=== PATIENT | female | born 1950 | race Caucasian/White ===

== ENCOUNTER 2017-03-10 17:35 | Inpatient (IN) ==
[2017-03-10] MEDS ORDERED: Nitroglycerin 0.4 MG TAB.SUBL SL ONE (18:51)
--- NOTE | 2017-03-10 18:53 | Emergency Department Note ---
Disposition Clinical Impression: Bilateral lower extremity edema, Acute CHF, UTI (urinary tract infection) Chest pain Qualifiers: Chest pain type: other chest pain Qualified Code(s): R07.89 - Other chest pain Disposition: Admitted As Inpatient Condition: Good General Adult HPI - General Chief complaint: ED Chest Pain Stated complaint: Bilateral leg swelling,left arm numbness Time Seen by Provider: 03/10/17 17:43 Source: family Mode of arrival: ambulatory Limitations: no limitations, physical limitation Nursing Notes Reviewed: Yes Vital Signs Reviewed: Yes - History of Present Illness HPI Narrative: [age]-year-old female presents emergency Department with bilateral lower extremity swelling and increasing shortness of breath. Patient states her legs have been increasingly swollen over the past month. She called her PCP for advice who recommended she be evaluated in emergency department. Patient blood pressures generally 1:30 systolic however in the emergency department is greater than 200. Patient also noted chest pain which started today, pressure in the center of her chest that radiated to the left arm. Pain Scale: 9 - Related Data Home Medications Medication Instructions Recorded Confirmed Amitriptyline [Elavil] 50 mg PO HS 02/05/16 03/10/17 Atorvastatin [Lipitor] 40 mg PO HS 02/05/16 03/10/17 Bupropion HCl [Wellbutrin Xl] 300 mg PO QAM 02/05/16 03/10/17 Ergocalciferol (VITAMIN D2) 50,000 unit PO Q2W 02/05/16 03/10/17 [Vitamin D2] Hydroxychloroquine [Plaquenuil] 200 mg PO DAILY 02/05/16 03/10/17 Lisinopril [Zestril] 20 mg PO DAILY 02/05/16 03/10/17 Meclizine HCl [Verticalm] 25 mg PO TID PRN 02/05/16 03/10/17 Rivaroxaban [Xarelto] 20 mg PO DAILY 02/05/16 03/10/17 Sertraline [Zoloft] 200 mg PO DAILY 02/05/16 03/10/17 Tiotropium [Spiriva] 1 spray IH DAILY 02/05/16 03/10/17 Tizanidine HCl 2 mg PO BID PRN 02/05/16 03/10/17 Topiramate [Topamax] 100 mg PO HS 02/05/16 03/10/17 Triamcinolone Acet 0.1% CRM 1 appl TP TID PRN 02/05/16 03/10/17 [Kenalog] Diclofenac Sodium [Voltaren] 1 appl TP QID 03/10/17 03/10/17 Gabapentin [Neurontin] 1,200 mg PO HS 03/10/17 03/10/17 Gabapentin [Neurontin] 600 mg PO BID 03/10/17 03/10/17 Ipratropium/Albuterol Neb [Duoneb] 3 ml IH Q4-6H 03/10/17 03/10/17 Mometasone Furoate [Asmanex] 220 mcg IH QPM 03/10/17 03/10/17 Oxybutynin Chloride [Ditropan Xl] 5 mg PO DAILY 03/10/17 03/10/17 SUMAtriptan succinate [Imitrex] 100 mg PO NOW PRN 03/10/17 03/10/17 Torsemide [Demadex] 20 - 40 mg PO DAILY 03/10/17 03/10/17 Triamterene/HCTZ 37.5/25mg 1 each PO DAILY 03/10/17 03/10/17 [Dyazide] hydrOXYzine HCl [Hydroxyzine HCl] 12.5 - 25 mg PO Q8H 03/10/17 03/10/17 Previous Rx's Medication Instructions Recorded Aspirin 81 mg PO DAILY tab.chew 02/07/16 Allergies Allergy/AdvReac Type Severity Reaction Status Date / Time [place] Allergy Hives Verified 03/10/17 20:42 naproxen AdvReac See Verified 03/10/17 20:42 Comments pregabalin [From Lyrica] AdvReac Vomiting Verified 03/10/17 20:42 All systems ED: reviewed and negative except as stated. Review of Systems: As Per HPI Constitutional: Reports: weakness. Denies: fever, chills Cardiovascular: Reports: chest pain Respiratory: Reports: dyspnea, wheezes. Denies: cough, hemoptysis, stridor Gastrointestinal: Denies: abdominal pain, nausea, vomiting Past Medical History - Past Medical History Attestation: Yes The following information was validated with the patient. Source: patient Medical history: Reports: arthritis, asthma, COPD, hyperlipidemia, hypertension , thyroid disease, other Surgical history: Reports: appendectomy, cholecystectomy, hysterectomy, other ( eye surgery) Psychiatric history: Reports: anxiety, depression - Social History Smoking Status: Current every day smoker Smokeless Tobacco Status: No Alcohol use: Reports: unknown Drug use: Reports: none Physical Exam General: Alert and in no acute distress. Morbidly obese Skin: Warm, dry, intact Head: Normocephalic and atraumatic Neck: Supple, trachea midline and no tenderness Cardiovascular: RRR, no murmur, normal perfusion Respiratory: CTAB, no wheezing, cough, or respiratory distress Musculoskeletal: Normal strength. Bilateral lower extremity edema. Extremities are warm to the touch with good cap refill. GI: Soft, nontender, nondistended. Bowel sounds present Neuro: A&O to person, place, time and situation. No focal deficits noted on exam Psychiatric: cooperative and appropriate mood and affect. - General Limitations: physical limitation General appearance: alert, in no apparent distress Course Vital Signs Temperature 98.4 F 03/10/17 18:25 Pulse Rate 87 03/10/17 18:25 Respiratory Rate 20 03/10/17 18:25 Blood Pressure 215/95 03/10/17 18:25 O2 Sat by Pulse Oximetry 96 03/10/17 18:25 Temperature 97.8 F 03/11/17 01:00 Pulse Rate 91 03/11/17 01:00 Respiratory Rate 18 03/11/17 01:05 Blood Pressure 144/67 03/11/17 01:00 O2 Sat by Pulse Oximetry 95 03/11/17 01:05 Oxygen Delivery Oxygen Delivery Room Air Medical Decision Making - MDM Narrative Medical decision making narrative: BiPAP ordered after initial evaluation for mild respiratory distress. Patient labs and imaging pending at the end of my shift. Patient will be transferred to Dr. Milan pending further evaluation and disposition. - Medical Records Medical records reviewed: Yes I reviewed the patient's medical records. - Lab Data Result diagrams: 03/11/17 00:49 03/11/17 00:49 Lab Results 03/10/17 03/10/17 03/10/17 Range/Units 18:55 18:55 18:55 WBC (4.3-11.1) K/mcL RBC (3.82-4.97) M/mcL Hgb (11.5-15.4) g/dL Hct (35.3-44.9) % MCV (83.0-100.0) fL MCH (28.0-33.3) pg MCHC (31.6-35.5) g/dL RDW (11.5-14.5) % Plt Count (140-400) K/mcL MPV (9.4-12.4) fL Immature Gran % (0-4) % Seg Neutrophils % % Lymphocytes % % Monocytes % % Eosinophils % % Basophils % % Neutrophils # (1.6-8.9) K/mcL Lymphocytes # (0.6-4.6) K/mcL Monocytes # (0.0-1.3) K/mcL Eosinophils # (0.0-0.6) K/mcL Basophils # (0.0-0.2) K/mcL PT 16.8 H (9.4-12.1) Seconds INR 1.5 APTT 34.3 (26.0-36.0) Seconds ABG pH (7.32-7.45) pH Units ABG pCO2 (35-45) mmHg ABG pO2 (85-104) mmHg ABG HCO3 (21-27) mEq/L ABG Total CO2 (20-26) mEq/L ABG O2 Saturation (95-98) % ABG Base Excess (-2 to 3) mEq/L Sodium 139 (136-145) mEq/L Potassium 4.0 (3.5-4.5) mEq/L Chloride 105 (98-109) mEq/L Carbon Dioxide 26 (19-29) mEq/L BUN 14 (7-20) mg/dL Creatinine 0.79 (0.57-1.11) mg/dL Est GFR ( Amer) > 60 (> 60) Est GFR (Non-Af Amer) > 60 (> 60) BUN/Creatinine Ratio 18 (6-26) Glucose 107 H (70-99) mg/dL Calculated Osmolality 289 (280-300) Calcium 8.9 (8.6-10.8) mg/dL Total Bilirubin 0.2 (0.2-1.2) mg/dL Direct Bilirubin 0.1 (0.0-0.5) mg/dL Indirect Bilirubin 0.1 (0.0-1.2) mg/dL AST 16 (5-34) Units/L ALT 14 (0-55) Units/L Alkaline Phosphatase 71 (38-126) Units/L Troponin I (0-0.03) ng/mL B-Natriuretic Peptide 38 (0-100) pg/mL Serum Total Protein 6.8 (6.0-8.3) g/dL Albumin 2.9 L (3.5-5.0) g/dL Globulin 3.9 H (2.4-3.5) g/dL Albumin/Globulin Ratio 0.7 L (1.1-2.2) Lipase 17 (8-78) Units/L Urine Color (Yellow) Urine Clarity (Clear) Urine pH (5.0-8.0) pH Units Ur Specific [place] (1.010-1.025) Urine Protein (Neg-Trace) mg/dL Urine Glucose (UA) (Normal) mg/dL Urine Ketones (Negative) mg/dL Urine Blood (Negative) Urine Nitrite (Negative) Urine Bilirubin (Negative) Urine Urobilinogen (Normal) mg/dL Ur Leukocyte Esterase (Negative) Urine Microscopic RBC (0-3) per hpf Urine Microscopic WBC (0-3) per hpf Ur Squamous Epith Cells (None-Few) per lpf Urine Bacteria (None-Few) per hpf Hyaline Casts (None-Few) per lpf Ur Culture Indicated? (NO) 03/10/17 03/10/17 03/10/17 Range/Units 18:55 18:55 19:20 WBC 10.3 (4.3-11.1) K/mcL RBC 4.83 (3.82-4.97) M/mcL Hgb 12.8 (11.5-15.4) g/dL Hct 41.7 (35.3-44.9) % MCV 86.3 (83.0-100.0) fL MCH 26.5 L (28.0-33.3) pg MCHC 30.7 L (31.6-35.5) g/dL RDW 14.4 (11.5-14.5) % Plt Count 230 (140-400) K/mcL MPV 10.0 (9.4-12.4) fL Immature Gran % 0.4 (0-4) % Seg Neutrophils % 65.1 % Lymphocytes % 25.4 % Monocytes % 7.2 % Eosinophils % 1.4 % Basophils % 0.5 % Neutrophils # 6.7 (1.6-8.9) K/mcL Lymphocytes # 2.6 (0.6-4.6) K/mcL Monocytes # 0.7 (0.0-1.3) K/mcL Eosinophils # 0.1 (0.0-0.6) K/mcL Basophils # 0.1 (0.0-0.2) K/mcL PT (9.4-12.1) Seconds INR APTT (26.0-36.0) Seconds ABG pH 7.34 (7.32-7.45) pH Units ABG pCO2 49 H (35-45) mmHg ABG pO2 68 L (85-104) mmHg ABG HCO3 27 (21-27) mEq/L ABG Total CO2 28 H (20-26) mEq/L ABG O2 Saturation 92 L (95-98) % ABG Base Excess 0 (-2 to 3) mEq/L Sodium (136-145) mEq/L Potassium (3.5-4.5) mEq/L Chloride (98-109) mEq/L Carbon Dioxide (19-29) mEq/L BUN (7-20) mg/dL Creatinine (0.57-1.11) mg/dL Est GFR ( Amer) (> 60) Est GFR (Non-Af Amer) (> 60) BUN/Creatinine Ratio (6-26) Glucose (70-99) mg/dL Calculated Osmolality (280-300) Calcium (8.6-10.8) mg/dL Total Bilirubin (0.2-1.2) mg/dL Direct Bilirubin (0.0-0.5) mg/dL Indirect Bilirubin (0.0-1.2) mg/dL AST (5-34) Units/L ALT (0-55) Units/L Alkaline Phosphatase (38-126) Units/L Troponin I 0.01 (0-0.03) ng/mL B-Natriuretic Peptide (0-100) pg/mL Serum Total Protein (6.0-8.3) g/dL Albumin (3.5-5.0) g/dL Globulin (2.4-3.5) g/dL Albumin/Globulin Ratio (1.1-2.2) Lipase (8-78) Units/L Urine Color (Yellow) Urine Clarity (Clear) Urine pH (5.0-8.0) pH Units Ur Specific [place] (1.010-1.025) Urine Protein (Neg-Trace) mg/dL Urine Glucose (UA) (Normal) mg/dL Urine Ketones (Negative) mg/dL Urine Blood (Negative) Urine Nitrite (Negative) Urine Bilirubin (Negative) Urine Urobilinogen (Normal) mg/dL Ur Leukocyte Esterase (Negative) Urine Microscopic RBC (0-3) per hpf Urine Microscopic WBC (0-3) per hpf Ur Squamous Epith Cells (None-Few) per lpf Urine Bacteria (None-Few) per hpf Hyaline Casts (None-Few) per lpf Ur Culture Indicated? (NO) 03/10/17 Range/Units 19:20 WBC (4.3-11.1) K/mcL RBC (3.82-4.97) M/mcL Hgb (11.5-15.4) g/dL Hct (35.3-44.9) % MCV (83.0-100.0) fL MCH (28.0-33.3) pg MCHC (31.6-35.5) g/dL RDW (11.5-14.5) % Plt Count (140-400) K/mcL MPV (9.4-12.4) fL Immature Gran % (0-4) % Seg Neutrophils % % Lymphocytes % % Monocytes % % Eosinophils % % Basophils % % Neutrophils # (1.6-8.9) K/mcL Lymphocytes # (0.6-4.6) K/mcL Monocytes # (0.0-1.3) K/mcL Eosinophils # (0.0-0.6) K/mcL Basophils # (0.0-0.2) K/mcL PT (9.4-12.1) Seconds INR APTT (26.0-36.0) Seconds ABG pH (7.32-7.45) pH Units ABG pCO2 (35-45) mmHg ABG pO2 (85-104) mmHg ABG HCO3 (21-27) mEq/L ABG Total CO2 (20-26) mEq/L ABG O2 Saturation (95-98) % ABG Base Excess (-2 to 3) mEq/L Sodium (136-145) mEq/L Potassium (3.5-4.5) mEq/L Chloride (98-109) mEq/L Carbon Dioxide (19-29) mEq/L BUN (7-20) mg/dL Creatinine (0.57-1.11) mg/dL Est GFR ( Amer) (> 60) Est GFR (Non-Af Amer) (> 60) BUN/Creatinine Ratio (6-26) Glucose (70-99) mg/dL Calculated Osmolality (280-300) Calcium (8.6-10.8) mg/dL Total Bilirubin (0.2-1.2) mg/dL Direct Bilirubin (0.0-0.5) mg/dL Indirect Bilirubin (0.0-1.2) mg/dL AST (5-34) Units/L ALT (0-55) Units/L Alkaline Phosphatase (38-126) Units/L Troponin I (0-0.03) ng/mL B-Natriuretic Peptide (0-100) pg/mL Serum Total Protein (6.0-8.3) g/dL Albumin (3.5-5.0) g/dL Globulin (2.4-3.5) g/dL Albumin/Globulin Ratio (1.1-2.2) Lipase (8-78) Units/L Urine Color Yellow (Yellow) Urine Clarity Cloudy A (Clear) Urine pH 6.0 (5.0-8.0) pH Units Ur Specific [place] 1.017 (1.010-1.025) Urine Protein >=300 H (Neg-Trace) mg/dL Urine Glucose (UA) Normal (Normal) mg/dL Urine Ketones Negative (Negative) mg/dL Urine Blood Large H (Negative) Urine Nitrite Positive A (Negative) Urine Bilirubin Negative (Negative) Urine Urobilinogen Normal (Normal) mg/dL Ur Leukocyte Esterase Small H (Negative) Urine Microscopic RBC 30-50 H (0-3) per hpf Urine Microscopic WBC 30-50 H (0-3) per hpf Ur Squamous Epith Cells Many H (None-Few) per lpf Urine Bacteria Many H (None-Few) per hpf Hyaline Casts None Seen (None-Few) per lpf Ur Culture Indicated? YES A (NO) - EKG Data EKG #1 EKG attestation: Yes I reviewed and interpreted this EKG. EKG results narrative: Normal sinus rhythm with a rate of 87 with diffusely flattened and inverted T waves Which are unchanged from previous. Attestation Statement - Attestation Attestation: I examined this patient and my medical decision-making was reviewed with the Resident Physician. I agree with the documented findings, disposition and treatment plan as described except to the extent set forth below. Findings consistent with leg swelling and dyspnea. Patient was placed on BiPAP. Patient will be admitted for evaluation of dyspnea and hypoxia. Stable at time of admission after initiation of BiPAP. I spent greater than 35 minutes of critical care time resuscitating this acutely ill patient suffering from hypoxia. This is excluding billable procedures.
[2017-03-10] MEDS ORDERED: Ipratropium/Albuterol Neb 3 ML IH ONE (19:12)
[2017-03-10 19:23] LABS: ABG Base Excess 0 mEq/L (-2 to 3); ABG HCO3 27 mEq/L (21-27); ABG Oxygen Saturation 92 % (95-98); ABG PCO2 49 mmHg (35-45); ABG PH 7.34 pH Units (7.32-7.45); ABG PO2 68 mmHg (85-104); ABG TCO2 28 mEq/L (20-26)
[2017-03-10] MEDS ORDERED: Furosemide 40 MG/4 ML VIAL IVP ONE (19:27)
[2017-03-10 19:29] LABS: Basophils # 0.1 K/mcL (0.0-0.2); Basophils % 0.5 %; Eosinophils # 0.1 K/mcL (0.0-0.6); Eosinophils % 1.4 %; Hematocrit 41.7 % (35.3-44.9); Hemoglobin 12.8 g/dL (11.5-15.4); Immature Granulocytes % 0.4 % (0-4); Lymphocytes # 2.6 K/mcL (0.6-4.6); Lymphocytes % 25.4 %; Mean Corpuscular HGB Conc 30.7 g/dL (31.6-35.5); Mean Corpuscular Hemoglobin 26.5 pg (28.0-33.3); Mean Corpuscular Volume 86.3 fL (83.0-100.0); Monocytes # 0.7 K/mcL (0.0-1.3); Monocytes % 7.2 %; Neutrophils # 6.7 K/mcL (1.6-8.9); Platelet Count 230 K/mcL (140-400); Red Blood Count 4.83 M/mcL (3.82-4.97); Red Cell Distribution Width 14.4 % (11.5-14.5); Segmented Neutrophils % 65.1 %
[2017-03-10] MEDS ORDERED: Nitroglycerin 25 MG/250 ML INFUS..BTL IVC SCH (19:30)
[2017-03-10 19:38] LABS: INR 1.5; Prothrombin Time 16.8 Seconds (9.4-12.1)
[2017-03-10 19:41] LABS: Activated Partial Thrombo Time 34.3 Seconds (26.0-36.0)
[2017-03-10 19:43] LABS: Alanine Aminotransferase 14 Units/L (0-55); Albumin 2.9 g/dL (3.5-5.0); Albumin/Globulin Ratio 0.7 (1.1-2.2); Alkaline Phosphatase 71 Units/L (38-126); Aspartate Amino Transferase 16 Units/L (5-34); BUN/Creatinine Ratio 18 (6-26); Bilirubin,Direct 0.1 mg/dL (0.0-0.5); Bilirubin,Indirect 0.1 mg/dL (0.0-1.2); Bilirubin,Total 0.2 mg/dL (0.2-1.2); Blood Urea Nitrogen 14 mg/dL (7-20); Calcium 8.9 mg/dL (8.6-10.8); Carbon Dioxide 26 mEq/L (19-29); Chloride 105 mEq/L (98-109); Globulin 3.9 g/dL (2.4-3.5); Glucose 107 mg/dL (70-99); Lipase 17 Units/L (8-78); Osmolality,Calculated 289 (280-300); Sodium 139 mEq/L (136-145); Total Protein 6.8 g/dL (6.0-8.3); eGFR For African Americans > 60 (> 60); eGFR For Non-African Americans > 60 (> 60)
[2017-03-10 20:11] LABS: Bilirubin,Urine Negative (Negative); Blood,Urine Large (Negative); Clarity,Urine Cloudy (Clear); Color,Urine Yellow (Yellow); Glucose,Urine (UA) Normal (Normal); Ketones,Urine Negative (Negative); Leukocyte Esterase,Urine Small (Negative); Nitrite,Urine Positive (Negative); Protein,Urine >=300 mg/dL (Neg-Trace); Specific Gravity,Urine 1.017 (1.010-1.025); Urobilinogen,Urine Normal (Normal)
[2017-03-10 20:13] LABS: Bacteria,Urine Many per hpf (None-Few); Hyaline Casts,Urine None Seen per lpf (None-Few); RBC,Urine 30-50 per hpf (0-3); Squamous Epithelial Cell,Urine Many per lpf (None-Few); WBC,Urine 30-50 per hpf (0-3)
--- NOTE | 2017-03-10 20:31 | Emergency Department Note ---
Disposition Clinical Impression: Bilateral lower extremity edema Chest pain Qualifiers: Chest pain type: other chest pain Qualified Code(s): R07.89 - Other chest pain Acute CHF Qualifiers: Congestive heart failure type: unspecified congestive heart failure type Qualified Code(s): I50.9 - Heart failure, unspecified UTI (urinary tract infection) Qualifiers: Urinary tract infection type: site unspecified Hematuria presence: with hematuria Qualified Code(s): N39.0 - Urinary tract infection, site not specified Disposition: Admitted As Inpatient Condition: Good Time of Disposition: 20:47 General Adult HPI - General Chief complaint: ED Chest Pain Stated complaint: Bilateral leg swelling,left arm numbness Time Seen by Provider: 03/10/17 17:43 Source: family Mode of arrival: ambulatory Limitations: physical limitation Nursing Notes Reviewed: Yes Vital Signs Reviewed: Yes - History of Present Illness HPI Narrative: Mrs. Hwang, 66-year-old female, istory of 3 weeks of progressively worsening dyspnea as well as weight gain. Patient has not weighed herself but notes her socks are tight on her feet and she is unable to wear her shoes as her feet are too large. She also notes chest pain which is difficult for her to describe, located substernal, non-radiating, with left arm numbness. Patient called her PCP for advice who recommended she present to the ER for evaluation. PMH: Hypertension, hyperlipide, morbid obesity, hypothyroidism, COPD-oxygen dependent 2 L at night and with activity, history DVT on [place] and with Amanda filter in place, history TIA ( January 2016), history CAD with ACS- no stents. ROS: Positive: as above, chills Neg: cough, fever, unusual back pain, abdominal pain, dysuria, constipation, diarrhea, vertigo, falls, confusion Pain Scale: 9 - Related Data Home Medications Medication Instructions Recorded Confirmed Amitriptyline [Elavil] 50 mg PO HS 02/05/16 03/10/17 Atorvastatin [Lipitor] 40 mg PO HS 02/05/16 03/10/17 Bupropion HCl [Wellbutrin Xl] 300 mg PO QAM 02/05/16 03/10/17 Ergocalciferol (VITAMIN D2) 50,000 unit PO Q2W 02/05/16 03/10/17 [Vitamin D2] Hydroxychloroquine [Plaquenuil] 200 mg PO DAILY 02/05/16 03/10/17 Lisinopril [Zestril] 20 mg PO DAILY 02/05/16 03/10/17 Meclizine HCl [Verticalm] 25 mg PO TID PRN 02/05/16 03/10/17 Rivaroxaban [Xarelto] 20 mg PO DAILY 02/05/16 03/10/17 Sertraline [Zoloft] 200 mg PO DAILY 02/05/16 03/10/17 Tiotropium [Spiriva] 1 spray IH DAILY 02/05/16 03/10/17 Tizanidine HCl 2 mg PO BID PRN 02/05/16 03/10/17 Topiramate [Topamax] 100 mg PO HS 02/05/16 03/10/17 Triamcinolone Acet 0.1% CRM 1 appl TP TID PRN 02/05/16 03/10/17 [Kenalog] Diclofenac Sodium [Voltaren] 1 appl TP QID 03/10/17 03/10/17 Gabapentin [Neurontin] 1,200 mg PO HS 03/10/17 03/10/17 Gabapentin [Neurontin] 600 mg PO BID 03/10/17 03/10/17 Ipratropium/Albuterol Neb [Duoneb] 3 ml IH Q4-6H 03/10/17 03/10/17 Mometasone Furoate [Asmanex] 220 mcg IH QPM 03/10/17 03/10/17 Oxybutynin Chloride [Ditropan Xl] 5 mg PO DAILY 03/10/17 03/10/17 SUMAtriptan succinate [Imitrex] 100 mg PO NOW PRN 03/10/17 03/10/17 Torsemide [Demadex] 20 - 40 mg PO DAILY 03/10/17 03/10/17 Triamterene/HCTZ 37.5/25mg 1 each PO DAILY 03/10/17 03/10/17 [Dyazide] hydrOXYzine HCl [Hydroxyzine HCl] 12.5 - 25 mg PO Q8H 03/10/17 03/10/17 Previous Rx's Medication Instructions Recorded Aspirin 81 mg PO DAILY tab.chew 02/07/16 Allergies Allergy/AdvReac Type Severity Reaction Status Date / Time Wells Allergy Hives Verified 03/10/17 20:42 naproxen AdvReac See Verified 03/10/17 20:42 Comments pregabalin [From Lyrica] AdvReac Vomiting Verified 03/10/17 20:42 All systems ED: reviewed and negative except as stated. Review of Systems: As Per HPI Constitutional: Reports: weakness. Denies: fever, chills Cardiovascular: Reports: chest pain Respiratory: Reports: dyspnea, wheezes. Denies: cough, hemoptysis, stridor Gastrointestinal: Denies: abdominal pain, nausea, vomiting Past Medical History - Past Medical History Medical history: Reports: arthritis, asthma, COPD, hyperlipidemia, hypertension , thyroid disease, other Surgical history: Reports: appendectomy, cholecystectomy, hysterectomy, other ( eye surgery) Psychiatric history: Reports: anxiety, depression - Social History Smoking Status: Current every day smoker Smokeless Tobacco Status: No Alcohol use: Reports: unknown Drug use: Reports: none Physical Exam Vital Signs Reviewed General: Patient is alert, oriented, and in no acute distress. HEENT: No facial asymmetry. Head is normocephalic and atraumatic. PERRLA, EOMI. Oral mucosa moist. Trachea midline. Cardiovascular: Heart regular rate and rhythm without clicks, rubs, gallops, or murmurs. No JVD. PMI nondisplaced. 2+ bilateral pitting pedal edema to the level of proximal tibia. Radial pulses 2/4 bilaterally. Posterior tibial pulses not palpable due to edema. Dorsalis pedis pulses 1/4 and equal bilaterally. Respiratory: Symmetric chest rise with prro respiratory effort. Prolonged expiratory phase. Bilateral breath sounds are diminished, with scattered wheeze , bibasilar crackles. Abdomen: Bowel sounds present normoactive x-4 quadrants. Abdomen is soft, nondistended, and nontender. Morbidly obese. Unable to assess organomegaly secondary to body habitus. Musculoskeletal: Spontaneously moving all extremities. Neuro: GCS 15. A&O x4. Psych: Patient's affect is appropriate for situation. - General Limitations: physical limitation General appearance: alert, in no apparent distress Course Course Narrative: Clinically, patient is in congestive BNP is within normal limits however patient's morbid obesity makes this an unreliable laboratory indicator. Patient's EKG is concerning for new-onset inverted and flattened T- waves in precordial leads. Troponin 0.01. Chest x-ray does not show pulmonary edema. BNP is in the 30s; this is unreliable given patient's obesity. Urinalysis is concerning for UTI. Will empirically treat with Rocephin. Patient's clinical picture from a pulmonary standpoint is more COPD however, given her increasing lower extremity edema, likely has a component of congestive heart failure. I discussed the patient with the admitting hospitalist, Dr. Garcia, who agrees to accept the patient for continued evaluation and management. Vital Signs Temperature 98.4 F 03/10/17 18:25 Pulse Rate 87 03/10/17 18:25 Respiratory Rate 20 03/10/17 18:25 Blood Pressure 215/95 03/10/17 18:25 O2 Sat by Pulse Oximetry 96 03/10/17 18:25 Temperature 97.8 F 03/11/17 01:00 Pulse Rate 91 03/11/17 01:00 Respiratory Rate 18 03/11/17 01:05 Blood Pressure 144/67 03/11/17 01:00 O2 Sat by Pulse Oximetry 95 03/11/17 01:05 Oxygen Delivery Oxygen Delivery Room Air Medical Decision Making - Medical Records Medical records reviewed: Yes I reviewed the patient's medical records. - Lab Data Lab results reviewed: Yes I reviewed the patient's lab results. Result diagrams: 03/11/17 00:49 03/11/17 00:49 Lab Results 03/10/17 03/10/17 03/10/17 Range/Units 18:55 18:55 18:55 WBC (4.3-11.1) K/mcL RBC (3.82-4.97) M/mcL Hgb (11.5-15.4) g/dL Hct (35.3-44.9) % MCV (83.0-100.0) fL MCH (28.0-33.3) pg MCHC (31.6-35.5) g/dL RDW (11.5-14.5) % Plt Count (140-400) K/mcL MPV (9.4-12.4) fL Immature Gran % (0-4) % Seg Neutrophils % % Lymphocytes % % Monocytes % % Eosinophils % % Basophils % % Neutrophils # (1.6-8.9) K/mcL Lymphocytes # (0.6-4.6) K/mcL Monocytes # (0.0-1.3) K/mcL Eosinophils # (0.0-0.6) K/mcL Basophils # (0.0-0.2) K/mcL PT 16.8 H (9.4-12.1) Seconds INR 1.5 APTT 34.3 (26.0-36.0) Seconds ABG pH (7.32-7.45) pH Units ABG pCO2 (35-45) mmHg ABG pO2 (85-104) mmHg ABG HCO3 (21-27) mEq/L ABG Total CO2 (20-26) mEq/L ABG O2 Saturation (95-98) % ABG Base Excess (-2 to 3) mEq/L Sodium 139 (136-145) mEq/L Potassium 4.0 (3.5-4.5) mEq/L Chloride 105 (98-109) mEq/L Carbon Dioxide 26 (19-29) mEq/L BUN 14 (7-20) mg/dL Creatinine 0.79 (0.57-1.11) mg/dL Est GFR ( Amer) > 60 (> 60) Est GFR (Non-Af Amer) > 60 (> 60) BUN/Creatinine Ratio 18 (6-26) Glucose 107 H (70-99) mg/dL Calculated Osmolality 289 (280-300) Calcium 8.9 (8.6-10.8) mg/dL Total Bilirubin 0.2 (0.2-1.2) mg/dL Direct Bilirubin 0.1 (0.0-0.5) mg/dL Indirect Bilirubin 0.1 (0.0-1.2) mg/dL AST 16 (5-34) Units/L ALT 14 (0-55) Units/L Alkaline Phosphatase 71 (38-126) Units/L Troponin I (0-0.03) ng/mL B-Natriuretic Peptide 38 (0-100) pg/mL Serum Total Protein 6.8 (6.0-8.3) g/dL Albumin 2.9 L (3.5-5.0) g/dL Globulin 3.9 H (2.4-3.5) g/dL Albumin/Globulin Ratio 0.7 L (1.1-2.2) Lipase 17 (8-78) Units/L Urine Color (Yellow) Urine Clarity (Clear) Urine pH (5.0-8.0) pH Units Ur Specific Teague (1.010-1.025) Urine Protein (Neg-Trace) mg/dL Urine Glucose (UA) (Normal) mg/dL Urine Ketones (Negative) mg/dL Urine Blood (Negative) Urine Nitrite (Negative) Urine Bilirubin (Negative) Urine Urobilinogen (Normal) mg/dL Ur Leukocyte Esterase (Negative) Urine Microscopic RBC (0-3) per hpf Urine Microscopic WBC (0-3) per hpf Ur Squamous Epith Cells (None-Few) per lpf Urine Bacteria (None-Few) per hpf Hyaline Casts (None-Few) per lpf Ur Culture Indicated? (NO) 03/10/17 03/10/17 03/10/17 Range/Units 18:55 18:55 19:20 WBC 10.3 (4.3-11.1) K/mcL RBC 4.83 (3.82-4.97) M/mcL Hgb 12.8 (11.5-15.4) g/dL Hct 41.7 (35.3-44.9) % MCV 86.3 (83.0-100.0) fL MCH 26.5 L (28.0-33.3) pg MCHC 30.7 L (31.6-35.5) g/dL RDW 14.4 (11.5-14.5) % Plt Count 230 (140-400) K/mcL MPV 10.0 (9.4-12.4) fL Immature Gran % 0.4 (0-4) % Seg Neutrophils % 65.1 % Lymphocytes % 25.4 % Monocytes % 7.2 % Eosinophils % 1.4 % Basophils % 0.5 % Neutrophils # 6.7 (1.6-8.9) K/mcL Lymphocytes # 2.6 (0.6-4.6) K/mcL Monocytes # 0.7 (0.0-1.3) K/mcL Eosinophils # 0.1 (0.0-0.6) K/mcL Basophils # 0.1 (0.0-0.2) K/mcL PT (9.4-12.1) Seconds INR APTT (26.0-36.0) Seconds ABG pH 7.34 (7.32-7.45) pH Units ABG pCO2 49 H (35-45) mmHg ABG pO2 68 L (85-104) mmHg ABG HCO3 27 (21-27) mEq/L ABG Total CO2 28 H (20-26) mEq/L ABG O2 Saturation 92 L (95-98) % ABG Base Excess 0 (-2 to 3) mEq/L Sodium (136-145) mEq/L Potassium (3.5-4.5) mEq/L Chloride (98-109) mEq/L Carbon Dioxide (19-29) mEq/L BUN (7-20) mg/dL Creatinine (0.57-1.11) mg/dL Est GFR ( Amer) (> 60) Est GFR (Non-Af Amer) (> 60) BUN/Creatinine Ratio (6-26) Glucose (70-99) mg/dL Calculated Osmolality (280-300) Calcium (8.6-10.8) mg/dL Total Bilirubin (0.2-1.2) mg/dL Direct Bilirubin (0.0-0.5) mg/dL Indirect Bilirubin (0.0-1.2) mg/dL AST (5-34) Units/L ALT (0-55) Units/L Alkaline Phosphatase (38-126) Units/L Troponin I 0.01 (0-0.03) ng/mL B-Natriuretic Peptide (0-100) pg/mL Serum Total Protein (6.0-8.3) g/dL Albumin (3.5-5.0) g/dL Globulin (2.4-3.5) g/dL Albumin/Globulin Ratio (1.1-2.2) Lipase (8-78) Units/L Urine Color (Yellow) Urine Clarity (Clear) Urine pH (5.0-8.0) pH Units Ur Specific Teague (1.010-1.025) Urine Protein (Neg-Trace) mg/dL Urine Glucose (UA) (Normal) mg/dL Urine Ketones (Negative) mg/dL Urine Blood (Negative) Urine Nitrite (Negative) Urine Bilirubin (Negative) Urine Urobilinogen (Normal) mg/dL Ur Leukocyte Esterase (Negative) Urine Microscopic RBC (0-3) per hpf Urine Microscopic WBC (0-3) per hpf Ur Squamous Epith Cells (None-Few) per lpf Urine Bacteria (None-Few) per hpf Hyaline Casts (None-Few) per lpf Ur Culture Indicated? (NO) 03/10/17 Range/Units 19:20 WBC (4.3-11.1) K/mcL RBC (3.82-4.97) M/mcL Hgb (11.5-15.4) g/dL Hct (35.3-44.9) % MCV (83.0-100.0) fL MCH (28.0-33.3) pg MCHC (31.6-35.5) g/dL RDW (11.5-14.5) % Plt Count (140-400) K/mcL MPV (9.4-12.4) fL Immature Gran % (0-4) % Seg Neutrophils % % Lymphocytes % % Monocytes % % Eosinophils % % Basophils % % Neutrophils # (1.6-8.9) K/mcL Lymphocytes # (0.6-4.6) K/mcL Monocytes # (0.0-1.3) K/mcL Eosinophils # (0.0-0.6) K/mcL Basophils # (0.0-0.2) K/mcL PT (9.4-12.1) Seconds INR APTT (26.0-36.0) Seconds ABG pH (7.32-7.45) pH Units ABG pCO2 (35-45) mmHg ABG pO2 (85-104) mmHg ABG HCO3 (21-27) mEq/L ABG Total CO2 (20-26) mEq/L ABG O2 Saturation (95-98) % ABG Base Excess (-2 to 3) mEq/L Sodium (136-145) mEq/L Potassium (3.5-4.5) mEq/L Chloride (98-109) mEq/L Carbon Dioxide (19-29) mEq/L BUN (7-20) mg/dL Creatinine (0.57-1.11) mg/dL Est GFR ( Amer) (> 60) Est GFR (Non-Af Amer) (> 60) BUN/Creatinine Ratio (6-26) Glucose (70-99) mg/dL Calculated Osmolality (280-300) Calcium (8.6-10.8) mg/dL Total Bilirubin (0.2-1.2) mg/dL Direct Bilirubin (0.0-0.5) mg/dL Indirect Bilirubin (0.0-1.2) mg/dL AST (5-34) Units/L ALT (0-55) Units/L Alkaline Phosphatase (38-126) Units/L Troponin I (0-0.03) ng/mL B-Natriuretic Peptide (0-100) pg/mL Serum Total Protein (6.0-8.3) g/dL Albumin (3.5-5.0) g/dL Globulin (2.4-3.5) g/dL Albumin/Globulin Ratio (1.1-2.2) Lipase (8-78) Units/L Urine Color Yellow (Yellow) Urine Clarity Cloudy A (Clear) Urine pH 6.0 (5.0-8.0) pH Units Ur Specific Teague 1.017 (1.010-1.025) Urine Protein >=300 H (Neg-Trace) mg/dL Urine Glucose (UA) Normal (Normal) mg/dL Urine Ketones Negative (Negative) mg/dL Urine Blood Large H (Negative) Urine Nitrite Positive A (Negative) Urine Bilirubin Negative (Negative) Urine Urobilinogen Normal (Normal) mg/dL Ur Leukocyte Esterase Small H (Negative) Urine Microscopic RBC 30-50 H (0-3) per hpf Urine Microscopic WBC 30-50 H (0-3) per hpf Ur Squamous Epith Cells Many H (None-Few) per lpf Urine Bacteria Many H (None-Few) per hpf Hyaline Casts None Seen (None-Few) per lpf Ur Culture Indicated? YES A (NO) - Radiology Data Radiology results reviewed: Yes I reviewed the patient's radiology results. - EKG Data EKG #1 EKG attestation: Yes I reviewed and interpreted this EKG. EKG results narrative: EKG dated 03/10/17 at 18:10 interpreted as sinus rhythm with rate of 87. Short TN of 102. QRS 91, QT/QTC 335/379. Left axis. T-wave inversion with flattening in precordial leads new from comparative EKG 02/05/2016.
[2017-03-10] MEDS ORDERED: cefTRIAXone 2,000 MG in Water for inj. (sterile) 20 ML IVP ONE (21:00)
[2017-03-10] MEDS ORDERED: Furosemide 40 MG/4 ML VIAL IVP SCH (21:15)
[2017-03-10] MEDS ORDERED: SUMAtriptan succinate 50 MG TABLET PO PRN (21:45)
[2017-03-10] MEDS ORDERED: Triamcinolone Acet 0.1% CRM 15 GM TUBE TP PRN (21:45)
[2017-03-10] MEDS ORDERED: Ondansetron 4 MG/2 ML VIAL IVP PRN (21:50)
[2017-03-10] MEDS ORDERED: Naloxone 0.4 MG/ML INJ IVP PRN (21:50)
--- NOTE | 2017-03-10 22:14 | Internal Med History&Physical ---
<MelvinamimitristanDavid ochoa - Last Filed: 03/10/17 23:04> Date of Encounter: 03/10/17 Time of Encounter: 21:00 Assessment and Plan (1) Acute CHF Current visit: Yes Status: Acute Acute CHF based on current sx of 1+ bilateral pedal edema of LEs, reported water -weight gain over past three weeks, SOB and orthopnea. Will hold pts. oral Dyazide and administer 40 mg IVP lasix BID. Fluid restriction of 1.5L daily. BiPap PRN. Supplemental o@ w/titration and SpO2 monitoring. DuoNebs Q4 scheduled. Echocardiogram ordered. Repeat EKG in a.m. Continuous cardiac telemetry. Monitor I&O and daily weight. Pt. is at high risk for respiratory distress/failure, cardiac event, and increased infection based on current sx, hx , and risk factors. Inpatient. Qualifiers: Congestive heart failure type: unspecified congestive heart failure type Qualified Code(s): I50.9 - Heart failure, unspecified (2) Acute exacerbation of chronic obstructive pulmonary disease (COPD) Current visit: Yes Status: Acute Acute exacerbation of COPD complicated by acute CHF. Pt. reports she currently smokes 1/2 PPD and uses home O2. ABGs ordered. Solumedrol IVP 40 mg Q8. DuoNebs Q4 scheduled. Mucinex DM BID for cough. Continue patient's Spiriva and Asmanex. BiPap ordered PRN w/supplemental O2 and SpO2 monitoring. (3) Chest pain Current visit: Yes Status: Acute Acute chest pain that pt. states began this afternoon that she describes as sharp stabbing pain on the left chest with radiation to left arm. Patient states left arm went numb for a few seconds. Hx of CAD, HTN, HLD, tobacco abuse , and pre-diabetes. Echocardiogram ordered. Initial troponin 0.01. Trend x2. Continuous cardiac telemetry. Continue patient's aspirin therapy, Xarelto, Lipitor, and lisinopril. Will consider cardiology consult based on echo results. Qualifiers: Chest pain type: other chest pain Qualified Code(s): R07.89 - Other chest pain; R07.8 - Other chest pain (4) UTI (urinary tract infection) Current visit: Yes Status: Acute Acute UTI based on initial U/A. Urine culture ordered. Pt. received IVPB ceftriaxone in ED. Will continue @ 1,000 mg daily for infection coverage and adjust abx based on urine culture results. Monitor I&O. Boston catheter ordered d /t pts. inability to ambulate safely and current IVP lasix for CHF exacerbation. Qualifiers: Urinary tract infection type: site unspecified Hematuria presence: with hematuria Qualified Code(s): N39.0 - Urinary tract infection, site not specified; R31.9 - Hematuria, unspecified; R31.9 - Hematuria, unspecified (5) Dizziness Current visit: Yes Status: Acute Acute dizziness most likely d/t current respiratory distress and fluid overload from CHF/COPD exacerbations. Falls/safety precautions. PT/OT consults ordered to assess pt. for ambulation strength and safety for post-discharge planning. (6) HTN (hypertension) Current visit: Yes Status: Chronic Hx of chronic HTN. Monitor pt. and VS. Pt takes lisinopril and Dyazide. Will hold Dyazide d/t IVP lasix pushes and continue pts. lisinopril. Qualifiers: Hypertension type: essential hypertension Qualified Code(s): I10 - Essential (primary) hypertension (7) HLD (hyperlipidemia) Current visit: Yes Status: Chronic Hx of chronic HLD. Lipid panel in a.m. labs. Continue patient's Lipitor. Qualifiers: Hyperlipidemia type: pure hypercholesterolemia Qualified Code(s): E78.00 - Pure hypercholesterolemia, unspecified; E78.0 - Pure hypercholesterolemia (8) Thyroid disease Current visit: Yes Status: Chronic Hx of chronic hypothyroidism. TSH ordered in a.m. labs. (9) CAD (coronary artery disease) Current visit: Yes Status: Chronic Hx of chronic CAD w/o stent placement. Hx of DVT/TIA, HTN, HLD. Continuous cardiac telemetry. Continue patient's her alto, aspirin therapy, Lipitor, and lisinopril. Echocardiogram ordered. Qualifiers: Coronary Disease-Associated Artery/Lesion type: shawnee artery [place] vs. transplanted heart: shawnee heart Associated angina: angina presence unspecified Qualified Code(s): I25.10 - Atherosclerotic heart disease of shawnee coronary artery without angina pectoris (10) History of DVT (deep vein thrombosis) Current visit: Yes Status: Chronic Hx of previous DVT in January 2016. Pt. states she was placed on Xarelto for anticoagulation. Continue pts. Xarelto. Venous Doppler of LEs ordered. (11) Tobacco abuse Current visit: Yes Status: Chronic Hx of chronic tobacco abuse. Patient states she smokes one half pack per day and has no interest in quitting due to stress level her life. 14 mg nicotine patch daily. (12) Anxiety and depression Current visit: Yes Status: Chronic Hx of chronic anxiety and depression. Will continue pts. Elavil and Zoloft. (13) Arthritis Current visit: Yes Status: Chronic Hx of chronic arthritis. Continue patient's Plaquenil. (14) DVT prophylaxis Current visit: Yes Status: Acute Continue pts. Xarelto for DVT prophylaxis. Monitor pt. for signs of bleeding. Internal Medicine - H&P: HPI Chief complaint: Swelling in legs/Weight gain over past month Admitted From: Emergency Dept Plans for Post Hospital Care: Home History of present illness: Ms. Hwang is a 66 year old female with medical hx of arthritis, asthma, COPD, CHF, morbid obesity, hx of DVT w/Amanda filter and on Xarelto, hx of TIA, CAD w/o stents, hyperlipidemia, hypertension, thyroid disease, and pre-diabetes [facility]entz from the ED with chief complaint swelling in her lower extremities and weight gain over the past three weeks. Patient states she is also not felt well over the past 3 weeks with nausea, dizziness, chills, and urinary urgency. Patient reports SOB, dyspnea, and orthopnea over the past three weeks as well as chest pain that she states began this afternoon as she describes as sharp, stabbing left-sided chest pain w/radiation to her left arm which went numb for several seconds. Pt. reports home O2 use and current tobacco abuse of 1/2 PPD. Patient denies fever, vomiting, changes in vision, headache, abdominal pain, pre -syncope, or syncope. Past Med Surg Social Fam HX - Past Medical History Source: patient, old records reviewed, obtained from family Medical history: arthritis, asthma, CHF, COPD, coronary artery disease (No stents), DVT (January 2016), hyperlipidemia, hypertension, thyroid disease, TIA , other Psychiatric history: anxiety, depression - Past Surgical History Surgical History: appendectomy, cataract (Rt eye), cholecystectomy, hysterectomy , other (Eye surgery x5 on left eye w/loss of vision) - Social History Smoking Status: Current every day smoker Packs per day: 1/2 PPD Smokeless Tobacco Status: No Alcohol use: unknown Drug use: none Current living situation: Home, With Family Activity Level: Uses cane/walker Recent Out of Country Travel Within the Last 8 Weeks: No Exposure or Possible Exposure to Illness During Travel: No - Family History Father Race: Family Member Ethnicity: Non- Living Status: Age at : 31 Cause of : Accident Mother Race: Family Member Ethnicity: Non- Living Status: Age at : 59 Cause of : [place] Hx Family Cardiac Disorders: Yes ([place], CAD) Brother Race: Family Member Ethnicity: Non- Living Status: Age at : 62 Cause of : Cancer (Type unknown) Hx Family Cardiac Disorders: Yes (Stroke) Hx Family Cancer: Yes Hx Family Endocrine Disorder: Yes (DM) Sister Race: Family Member Ethnicity: Non- Living Status: Still Living Hx Family Cancer: Yes (Breast) Internal Medicine - H&P: Meds Amitriptyline [Elavil] 50 mg PO HS 02/05/16 [History] Atorvastatin [Lipitor] 40 mg PO HS 02/05/16 [History] Bupropion HCl [Wellbutrin Xl] 300 mg PO QAM 02/05/16 [History] Ergocalciferol (VITAMIN D2) [Vitamin D2] 50,000 unit PO Q2W 02/05/16 [History] Hydroxychloroquine [Plaquenuil] 200 mg PO DAILY 02/05/16 [History] Lisinopril [Zestril] 20 mg PO DAILY 02/05/16 [History] Meclizine HCl [Verticalm] 25 mg PO TID PRN 02/05/16 [History] Rivaroxaban [Xarelto] 20 mg PO DAILY 02/05/16 [History] Sertraline [Zoloft] 200 mg PO DAILY 02/05/16 [History] Tiotropium [Spiriva] 1 spray IH DAILY 02/05/16 [History] Tizanidine HCl 2 mg PO BID PRN 02/05/16 [History] Topiramate [Topamax] 100 mg PO HS 02/05/16 [History] Triamcinolone Acet 0.1% CRM [Kenalog] 1 appl TP TID PRN 02/05/16 [History] Aspirin 81 mg PO DAILY tab.chew 02/07/16 [Rx] Diclofenac Sodium [Voltaren] 1 appl TP QID 03/10/17 [History] Gabapentin [Neurontin] 1,200 mg PO HS 03/10/17 [History] Gabapentin [Neurontin] 600 mg PO BID 03/10/17 [History] Ipratropium/Albuterol Neb [Duoneb] 3 ml IH Q4-6H 03/10/17 [History] Mometasone Furoate [Asmanex] 220 mcg IH QPM 03/10/17 [History] Oxybutynin Chloride [Ditropan Xl] 5 mg PO DAILY 03/10/17 [History] SUMAtriptan succinate [Imitrex] 100 mg PO NOW PRN 03/10/17 [History] Torsemide [Demadex] 20 - 40 mg PO DAILY 03/10/17 [History] Triamterene/HCTZ 37.5/25mg [Dyazide] 1 each PO DAILY 03/10/17 [History] hydrOXYzine HCl [Hydroxyzine HCl] 12.5 - 25 mg PO Q8H 03/10/17 [History] 3 Allergy/AdvReac Type Severity Reaction Status Date / Time [place] Allergy Hives Verified 03/10/17 20:42 naproxen AdvReac See Verified 03/10/17 20:42 Comments pregabalin [From Lyrica] AdvReac Vomiting Verified 03/10/17 20:42 All Systems PM: A 10-system review of systems was performed and is negative for pertinent findings except as documented above in the HPI. - Constitutional Constitutional: as per HPI, chills, weakness, weight gain, no fever(s), no night sweats - EENT Eyes: loss of vision (Left eye), no change in vision, no discharge, no pain, no photophobia Ears: no ear discharge, no ear pain, no tinnitus Nose, mouth and throat: no dysphagia, no nasal discharge, no neck pain, no sore throat - Breasts Breasts: as per HPI - Cardiovascular Cardiovascular ROS IM: as per HPI, chest pain (Sharp and stabbing w/radiation to left arm w/numbness), dyspnea, dyspnea on exertion, edema (Bilateral 1+ pitting edema of LEs), orthopnea - Respiratory Respiratory: as per HPI, cough, dyspnea, dyspnea on exertion, wheezing, chest congestion, change in phlegm color - Gastrointestinal Gastrointestinal: as per HPI, nausea, no abdominal pain, no diarrhea, no hematemesis, no hematochezia, no melena, no vomiting - Genitourinary Genitourinary: as per HPI, urinary frequency, urinary urgency Menstruation: as per HPI, post hysterectomy (Total) - Musculoskeletal Musculoskeletal ROS IM: no numbness, no tingling - Integumentary Integumentary IM: unusual bruising (D/t Xarelto), no rash - Neurological Neurological ROS: as per HPI, dizziness, weakness, no confusion, no convulsions , no focal weakness, no numbness, no tingling, no tremor(s) - Psychiatric Psychiatric: as per HPI, anxiety, depression - Endocrine Endocrine IM: as per HPI - Hematologic/Lymphatic Hematologic/Lymphatic: no easy bruising - Allergic/Immunologic Allergic/Immunologic: as per HPI - Constitutional Vitals: Temp Pulse Resp BP Pulse Ox 98.4 F 84 20 158/70 96 03/10/17 18:25 03/10/17 20:10 03/10/17 18:25 03/10/17 20:10 03/10/17 20:10 General appearance: Present: cooperative, A&O X 3, morbidly obese, pleasant, severe distress (Respiratory ), answers questions appropriately - Head Head exam: Present: atraumatic, normocephalic - Eye Eye exam: Present: PERRL, conjuntiva pink, sclera anicteric Pupils: Present: PERRL - ENT ENT exam: Present: normal exam, normal external ear exam - Neck Neck exam general surgery: Present: normal inspection - Respiratory Respiratory exam: Present: accessory muscle use, respiratory distress, wheezes ( Inspiratory and expiratory all lobes) - Cardiovascular Cardiovascular exam: Present: RRR, +S1, +S2. Absent: diastolic murmur, gallop, rubs, systolic murmur - GI/Abdominal GI/Abdominal exam: Present: normal bowel sounds, soft, no peritoneal signs. Absent: distended, tenderness - Rectal Rectal exam: Present: deferred - Additional comments: exam deferred. - Extremities Exam Extremities exam: Present: pedal edema (1+ pitting edema in bilateral LEs), warm , radial pulses palpable and symmetrical. Absent: calf tenderness, cyanotic - Back Exam Back exam: Present: normal inspection - Neurological Exam Neurological exam: Present: CN II-XII intact, oriented X3, no focal deficits. Absent: pronater drift, facial droop, speech deficit - Psychiatric Psychiatric exam: Present: anxious - Skin Skin exam: Present: dry, intact Internal Med - H&P Results - Labs CBC & Chem 7: 03/10/17 18:55 03/10/17 18:55 - EKG Data EKG shows normal: sinus rhythm - EKG Data Prior EKG available for review: yes EKG comments: 03/10/17 22:24 EKG dated 02/05/16 shows sinus rhythm and nonspecific ST abnormality. EKG dated 03/10/17 shows sinus rhythm with short [place] interval and borderline ECG. - Diagnostic Studies Chest x-ray Additional comments: Impressions Chest X-Ray 03/10/17 17:43 IMPRESSION: 1. No active pulmonary disease. 2. Cardiomegaly without overt failure. D/ / Antonio Dixon MD / Antonio Dixon MD Interpreting Provider: Antonio Dixon MD <Riaz Khan - Last Filed: 03/11/17 01:45> Date of Encounter: 03/10/17 Internal Medicine - H&P: HPI History of present illness: Ms. Hwang is a 66 year old female All Systems PM: A 10-system review of systems was performed and is negative for pertinent findings except as documented above in the HPI. - Constitutional Vitals: Temp Pulse Resp BP Pulse Ox 97.8 F 91 18 144/67 95 03/11/17 01:00 03/11/17 01:00 03/11/17 01:05 03/11/17 01:00 03/11/17 01:05 Internal Med - H&P Results - Labs CBC & Chem 7: 03/11/17 00:49 03/11/17 00:49 Labs: Short CBC 03/11/17 Range/Units 00:49 WBC 10.8 (4.3-11.1) K/mcL Hgb 12.0 (11.5-15.4) g/dL Hct 37.9 (35.3-44.9) % Plt Count 193 (140-400) K/mcL Neutrophils # 7.5 (1.6-8.9) K/mcL BMP 03/11/17 00:49 Sodium 140 Potassium 3.6 Chloride 105 Carbon Dioxide 25 BUN 14 Creatinine 0.84 Glucose 123 H Calcium 8.4 L Cardiac Enzymes 03/11/17 Range/Units 00:49 Troponin I 0.01 (0-0.03) ng/mL Liver Function 03/11/17 Range/Units 00:49 Total Bilirubin < 0.2 L (0.2-1.2) mg/dL AST 14 (5-34) Units/L ALT 10 (0-55) Units/L Alkaline Phosphatase 67 (38-126) Units/L Albumin 2.7 L (3.5-5.0) g/dL - Attending Attestation I examined this patient and my medical decision-making was reviewed with the FRAME MAKER. I agree with the documented findings, disposition and treatment plan as described except to the extent set forth below. I have seen and examined the patient. Patient is a 66-year-old female with past medical history of COPD, CHF, hypertension, TIA, hyperlipidemia, coronary artery disease, anxiety, depression and thyroid disease. Patient presents to ED with complaints of shortness of breath and worsening edema of both lower legs. Initial workup in the ED is significant for UTI. Patient also has clinical signs of CHF exacerbation and COPD exacerbation. She is being admitted for CHF and COPD and UTI. She will need IV antibiotics, IV Lasix and DuoNeb breathing treatment. We will continue O2 via nasal cannula. Patient has been counseled about smoking cessation. Continue CPAP at night. Patient and granddaughter have been explained about her condition and plan of care in detail. They understood and agreed. No unanswered questions. EKG shows sinus tachycardia. Troponin is negative. Code status full code.
[2017-03-10] MEDS: Furosemide 40 MG/4 ML VIAL IVP SCH (23:44)
[2017-03-10] MEDS: GuaiFENesin/Dextromethorphan TABLET PO SCH (23:46)
[2017-03-10] MEDS: Nicotine 14 MG PATCH.TD24 TD SCH (23:48)
[2017-03-10] MEDS: MethylPREDNISolone 40 MG/ML VIAL IVP SCH (23:51)
[2017-03-11] MEDS: Topiramate 100 MG TABLET PO SCH ×2 (00:55→22:19)
[2017-03-11 01:01] LABS: Basophils # 0.1 K/mcL (0.0-0.2); Basophils % 0.5 %; Eosinophils # 0.1 K/mcL (0.0-0.6); Eosinophils % 0.7 %; Hematocrit 37.9 % (35.3-44.9); Immature Granulocytes % 0.3 % (0-4); Lymphocytes # 2.4 K/mcL (0.6-4.6); Mean Corpuscular HGB Conc 31.7 g/dL (31.6-35.5); Mean Corpuscular Hemoglobin 27.3 pg (28.0-33.3); Mean Corpuscular Volume 86.3 fL (83.0-100.0); Mean Platelet Volume 9.9 fL (9.4-12.4); Monocytes # 0.8 K/mcL (0.0-1.3); Monocytes % 7.1 %; Neutrophils # 7.5 K/mcL (1.6-8.9); Platelet Count 193 K/mcL (140-400); Red Blood Count 4.39 M/mcL (3.82-4.97); Red Cell Distribution Width 14.6 % (11.5-14.5); Segmented Neutrophils % 69.4 %
[2017-03-11] MEDS: Ipratropium/Albuterol Neb 3 ML IH SCH ×6 (01:05→19:35)
[2017-03-11 01:08] LABS: Hemoglobin A1C 5.6 %; INR 1.3; Prothrombin Time 14.3 Seconds (9.4-12.1)
[2017-03-11 01:11] LABS: Activated Partial Thrombo Time 29.4 Seconds (26.0-36.0)
[2017-03-11 01:14] LABS: Alanine Aminotransferase 10 Units/L (0-55); Albumin 2.7 g/dL (3.5-5.0); Albumin/Globulin Ratio 0.7 (1.1-2.2); Alkaline Phosphatase 67 Units/L (38-126); Aspartate Amino Transferase 14 Units/L (5-34); BUN/Creatinine Ratio 17 (6-26); Blood Urea Nitrogen 14 mg/dL (7-20); Calcium 8.4 mg/dL (8.6-10.8); Carbon Dioxide 25 mEq/L (19-29); Chloride 105 mEq/L (98-109); Chol/HDL Ratio 5.9 (0-4.9); Cholesterol 237 mg/dL (< 200); Globulin 3.8 g/dL (2.4-3.5); Glucose 123 mg/dL (70-99); HDL Cholesterol 40 mg/dL (40-59); LDL Cholesterol,Calculated 131 mg/dL (0-99); Magnesium 1.6 mg/dL (1.6-2.6); Osmolality,Calculated 292 (280-300); Potassium 3.6 mEq/L (3.5-4.5); Sodium 140 mEq/L (136-145); Total Protein 6.5 g/dL (6.0-8.3); Triglycerides 332 mg/dL (< 150); eGFR For African Americans > 60 (> 60); eGFR For Non-African Americans > 60 (> 60)
[2017-03-11 01:15] LABS: Bilirubin,Total < 0.2 mg/dL (0.2-1.2)
[2017-03-11] MEDS ORDERED: Famotidine 20 MG/2 ML VIAL IVP SCH (06:00)
[2017-03-11] MEDS ORDERED: Ipratropium/Albuterol Neb 3 ML ONE (07:46)
[2017-03-11] MEDS: Beclomethasone 80mcg MDI IH SCH ×2 (07:50→19:37)
[2017-03-11] MEDS: Tiotropium 18 MCG inhalation IH SCH (07:51)
[2017-03-11] MEDS: Acetaminophen 325 MG TABLET PO PRN ×2 (07:59→16:18)
[2017-03-11] MEDS: MethylPREDNISolone 40 MG/ML VIAL IVP SCH ×2 (07:59→16:18)
[2017-03-11] MEDS ORDERED: *HR* Rivaroxaban 10 MG TABLET PO SCH (09:00)
[2017-03-11] MEDS: *HR* HYDROcodone/Acet 5/325 mg TABLET PO PRN (10:38)
[2017-03-11] MEDS: Aspirin 81 MG TAB.CHEW PO SCH (10:38)
[2017-03-11] MEDS: cefTRIAXone 1,000 MG in Water for inj. (sterile) 10 ML IVP SCH (10:38)
[2017-03-11] MEDS: Furosemide 40 MG/4 ML VIAL IVP SCH ×2 (10:39→22:17)
[2017-03-11] MEDS: Nicotine 14 MG PATCH.TD24 TD SCH (12:07)
[2017-03-11] MEDS: Lisinopril 20 MG TABLET PO SCH (12:07)
[2017-03-11] MEDS ORDERED: Mag Hydrox/Al Hydrox/Simeth 30 ML UDC PO PRN (15:10)
--- NOTE | 2017-03-11 15:16 | Internal Med Progress Note ---
Date of Encounter: 03/11/17 Time of Encounter: 15:00 - Assessment and plan (1) Acute CHF Current Visit: Yes Status: Acute Assessment and plan: Improving clinically. Continue Lasix. 2-D echocardiogram shows diastolic dysfunction. Monitor input and output. Daily weights. Moderate risk for complications. Qualifiers: Congestive heart failure type: diastolic Qualified Code(s): I50.31 - Acute diastolic (congestive) heart failure (2) Acute exacerbation of chronic obstructive pulmonary disease (COPD) Current Visit: Yes Status: Acute Assessment and plan: Continue IV steroids. Bronchodilators. O2 supplementation as needed. (3) Chest pain Current Visit: Yes Status: Acute Assessment and plan: Negative troponins. 2-D echocardiogram shows normal wall motion. EF 70%. Chest pain has now resolved. Will order cardiac stress test for further evaluation as patient has not had any recent stress test done. Qualifiers: Chest pain type: precordial pain Qualified Code(s): R07.2 - Precordial pain (4) Dizziness Current Visit: Yes Status: Acute Assessment and plan: Improved. (5) UTI (urinary tract infection) Current Visit: Yes Status: Acute Assessment and plan: Continue ceftriaxone. Await culture results. Qualifiers: Urinary tract infection type: acute cystitis Hematuria presence: with hematuria Qualified Code(s): N30.01 - Acute cystitis with hematuria (6) HTN (hypertension) Current Visit: Yes Status: Chronic Assessment and plan: Blood pressure elevated today. Resume home medications. Qualifiers: Hypertension type: essential hypertension Qualified Code(s): I10 - Essential (primary) hypertension (7) DVT prophylaxis Current Visit: Yes Status: Acute Assessment and plan: Patient on Xarelto - Subjective Interval history: Patient feels better now and swelling in her lower extremities has improved. She however complains of a headache along with nausea and heartburn. She is able to breathe better. Chest pain is also better now. - Constitutional Vitals: Temp Pulse Resp BP Pulse Ox 98.2 F 94 20 152/82 94 03/11/17 14:49 03/11/17 14:49 03/11/17 14:49 03/11/17 14:49 03/11/17 14:49 General appearance: Present: cooperative, mild distress, A&O X 3, morbidly obese , pleasant, answers questions appropriately - Neck Neck exam general surgery: Present: supple, trachea midline. Absent: lymphadenopathy - Respiratory Respiratory exam: Present: prolonged expiratory phase. Absent: accessory muscle use, rales, rhonchi, wheezes - Cardiovascular Cardiovascular exam: Present: RRR, +S1, +S2. Absent: diastolic murmur, gallop, rubs, systolic murmur - GI/Abdominal GI/Abdominal exam: Present: normal bowel sounds, soft, no peritoneal signs. Absent: distended, tenderness - Extremities Exam Extremities exam: Present: warm, radial pulses palpable and symmetrical. Absent : calf tenderness, cyanotic, pedal edema - Neurological Exam Neurological exam: Present: CN II-XII intact, oriented X3, no focal deficits. Absent: facial droop, speech deficit - Skin Skin exam: Present: dry, intact Internal Medicine: Result - Labs CBC & Chem 7: 03/11/17 00:49 03/11/17 00:49 Labs: Short CBC 03/11/17 Range/Units 00:49 WBC 10.8 (4.3-11.1) K/mcL Hgb 12.0 (11.5-15.4) g/dL Hct 37.9 (35.3-44.9) % Plt Count 193 (140-400) K/mcL Neutrophils # 7.5 (1.6-8.9) K/mcL BMP 03/11/17 00:49 Sodium 140 Potassium 3.6 Chloride 105 Carbon Dioxide 25 BUN 14 Creatinine 0.84 Glucose 123 H Calcium 8.4 L Cardiac Enzymes 03/11/17 03/11/17 Range/Units 00:49 08:11 Troponin I 0.01 0.01 (0-0.03) ng/mL Liver Function 03/11/17 Range/Units 00:49 Total Bilirubin < 0.2 L (0.2-1.2) mg/dL AST 14 (5-34) Units/L ALT 10 (0-55) Units/L Alkaline Phosphatase 67 (38-126) Units/L Albumin 2.7 L (3.5-5.0) g/dL - ABG Interpretation ABG results: ABG ABG pH 7.34 pH Units (7.32-7.45) 03/10/17 19:20 ABG pCO2 49 mmHg (35-45) H 03/10/17 19:20 ABG pO2 68 mmHg (85-104) L 03/10/17 19:20 ABG O2 Saturation 92 % (95-98) L 03/10/17 19:20 PT/INR, D-dimer PT 14.3 Seconds (9.4-12.1) H 03/11/17 00:49 Consult Discharge Plan - Plan Referrals: Elias Iglesias DO [Primary Care Provider] -
[2017-03-11] MEDS: GuaiFENesin/Dextromethorphan TABLET PO SCH ×2 (16:17→22:19)
[2017-03-11] MEDS: *HR* Rivaroxaban 10 MG TABLET PO SCH (16:18)
[2017-03-11] MEDS: Famotidine 20 MG TABLET PO SCH (22:19)
[2017-03-12] MEDS: Ipratropium/Albuterol Neb 3 ML IH SCH ×7 (00:15→23:48)
[2017-03-12] MEDS: MethylPREDNISolone 40 MG/ML VIAL IVP SCH ×2 (00:19→09:36)
[2017-03-12] MEDS: *HR* HYDROcodone/Acet 5/325 mg TABLET PO PRN (04:43)
[2017-03-12 05:14] LABS: Basophils % 0.2 %; Eosinophils % 0.1 %; Hematocrit 36.4 % (35.3-44.9); Hemoglobin 11.3 g/dL (11.5-15.4); Immature Granulocytes % 0.6 % (0-4); Lymphocytes # 1.1 K/mcL (0.6-4.6); Lymphocytes % 12.6 %; Mean Corpuscular Volume 87.1 fL (83.0-100.0); Mean Platelet Volume 10.3 fL (9.4-12.4); Monocytes # 0.2 K/mcL (0.0-1.3); Monocytes % 2.2 %; Neutrophils # 7.4 K/mcL (1.6-8.9); Platelet Count 187 K/mcL (140-400); Red Blood Count 4.18 M/mcL (3.82-4.97); Red Cell Distribution Width 14.6 % (11.5-14.5); Segmented Neutrophils % 84.3 %
[2017-03-12 05:19] LABS: Alanine Aminotransferase 12 Units/L (0-55); Albumin 2.8 g/dL (3.5-5.0); Albumin/Globulin Ratio 0.7 (1.1-2.2); Alkaline Phosphatase 71 Units/L (38-126); Aspartate Amino Transferase 14 Units/L (5-34); BUN/Creatinine Ratio 22 (6-26); Blood Urea Nitrogen 18 mg/dL (7-20); Calcium 8.8 mg/dL (8.6-10.8); Carbon Dioxide 26 mEq/L (19-29); Chloride 103 mEq/L (98-109); Globulin 4.1 g/dL (2.4-3.5); Glucose 169 mg/dL (70-99); Osmolality,Calculated 290 (280-300); Potassium 3.7 mEq/L (3.5-4.5); Sodium 137 mEq/L (136-145); Total Protein 6.9 g/dL (6.0-8.3); eGFR For African Americans > 60 (> 60); eGFR For Non-African Americans > 60 (> 60)
[2017-03-12 05:21] LABS: Bilirubin,Total < 0.2 mg/dL (0.2-1.2)
[2017-03-12] MEDS ORDERED: Regadenoson 0.4 MG/5 ML SYRINGE IVP ONE (07:01)
[2017-03-12] MEDS: Beclomethasone 80mcg MDI IH SCH ×2 (07:34→20:25)
[2017-03-12] MEDS: Tiotropium 18 MCG inhalation IH SCH (07:34)
[2017-03-12] MEDS: Furosemide 40 MG/4 ML VIAL IVP SCH ×2 (09:36→17:44)
[2017-03-12] MEDS: Famotidine 20 MG TABLET PO SCH ×2 (09:36→21:26)
[2017-03-12] MEDS: cefTRIAXone 1,000 MG in Water for inj. (sterile) 10 ML IVP SCH (09:36)
[2017-03-12] MEDS: GuaiFENesin/Dextromethorphan TABLET PO SCH ×2 (09:36→21:25)
[2017-03-12] MEDS: Aspirin 81 MG TAB.CHEW PO SCH (09:36)
[2017-03-12] MEDS: Lisinopril 20 MG TABLET PO SCH (09:36)
[2017-03-12] MEDS: Nicotine 14 MG PATCH.TD24 TD SCH (09:38)
--- NOTE | 2017-03-12 17:03 | Internal Med Progress Note ---
Date of Encounter: 03/12/17 Time of Encounter: 09:25 - Assessment and plan (1) Acute CHF Current Visit: Yes Status: Acute Assessment and plan: Improving. Continue intravenous Lasix. Continue to monitor input and output. 2-D echocardiogram shows normal EF of 70% with mild left ventricle diastolic dysfunction. Qualifiers: Congestive heart failure type: diastolic Qualified Code(s): I50.31 - Acute diastolic (congestive) heart failure (2) Acute exacerbation of chronic obstructive pulmonary disease (COPD) Current Visit: Yes Status: Acute Assessment and plan: Continue bronchodilators. We will transition intravenous steroids to oral prednisone. (3) Chest pain Current Visit: Yes Status: Acute Assessment and plan: Plan for cardiac stress test tomorrow. Troponins negative. Qualifiers: Chest pain type: precordial pain Qualified Code(s): R07.2 - Precordial pain (4) Dizziness Current Visit: Yes Status: Resolved Assessment and plan: improved. (5) UTI (urinary tract infection) Current Visit: Yes Status: Acute Assessment and plan: Urine culture growing gram-negative rods. Continue ceftriaxone Qualifiers: Urinary tract infection type: acute cystitis Hematuria presence: with hematuria Qualified Code(s): N30.01 - Acute cystitis with hematuria (6) HTN (hypertension) Current Visit: Yes Status: Chronic Assessment and plan: Blood pressure remains elevated but improving. We will continue to monitor closely. Qualifiers: Hypertension type: essential hypertension Qualified Code(s): I10 - Essential (primary) hypertension (7) DVT prophylaxis Current Visit: Yes Status: Acute Assessment and plan: Continue Xarelto - Subjective Interval history: Patient is lying in bed. Feels better with regards to her breathing. She did have another episode of chest pain overnight. Was scheduled for stress test this morning but had nicotine patch on and so the test has been canceled for today. - Constitutional Vitals: Temp Pulse Resp BP Pulse Ox 98.1 F 93 16 143/58 96 03/12/17 11:59 03/12/17 11:59 03/12/17 15:45 03/12/17 11:59 03/12/17 15:45 General appearance: Present: cooperative, mild distress, A&O X 3, morbidly obese , pleasant, answers questions appropriately - Neck Neck exam general surgery: Present: supple, trachea midline. Absent: lymphadenopathy - Respiratory Respiratory exam: Present: prolonged expiratory phase, wheezes. Absent: accessory muscle use, rales, rhonchi - Cardiovascular Cardiovascular exam: Present: RRR, +S1, +S2. Absent: diastolic murmur, gallop, rubs, systolic murmur - GI/Abdominal GI/Abdominal exam: Present: normal bowel sounds, soft, no peritoneal signs. Absent: distended, tenderness - Neurological Exam Neurological exam: Present: alert, oriented X3, no focal deficits. Absent: facial droop, speech deficit - Skin Skin exam: Present: dry, intact Internal Medicine: Result - Labs CBC & Chem 7: 03/12/17 04:39 03/12/17 04:39 Labs: Short CBC 03/12/17 Range/Units 04:39 WBC 8.8 (4.3-11.1) K/mcL Hgb 11.3 L (11.5-15.4) g/dL Hct 36.4 (35.3-44.9) % Plt Count 187 (140-400) K/mcL Neutrophils # 7.4 (1.6-8.9) K/mcL BMP 03/12/17 04:39 Sodium 137 Potassium 3.7 Chloride 103 Carbon Dioxide 26 BUN 18 Creatinine 0.82 Glucose 169 H Calcium 8.8 Liver Function 03/12/17 Range/Units 04:39 Total Bilirubin < 0.2 L (0.2-1.2) mg/dL AST 14 (5-34) Units/L ALT 12 (0-55) Units/L Alkaline Phosphatase 71 (38-126) Units/L Albumin 2.8 L (3.5-5.0) g/dL - ABG Interpretation ABG results: ABG ABG pH 7.34 pH Units (7.32-7.45) 03/10/17 19:20 ABG pCO2 49 mmHg (35-45) H 03/10/17 19:20 ABG pO2 68 mmHg (85-104) L 03/10/17 19:20 ABG O2 Saturation 92 % (95-98) L 03/10/17 19:20 PT/INR, D-dimer PT 14.3 Seconds (9.4-12.1) H 03/11/17 00:49 - Impressions Impressions Echocardiogram 03/11/17 21:13 Impressions: Technically sub-optimal due to body habitus. LVEF 70%. Normal LV chamber size and function. Mild concentric left ventricular hypertrophy. Mild left ventricular diastolic dysfunction. Normal right ventricular structure and function. Severely dilated left atrium. No evidence of pulmonary hypertension identified. RVSP was not well obtained due to poor TR jet. No obvious significant valvular dysfunction. Left Ventricular Wall Motion: Rest Echo Findings All wall segments showed normal motion. Findings: Study Quality * Technically sub-optimal due to body habitus. ECG Findings * Normal sinus rhythm. Left Ventricle * LVEF 70%. * Normal LV chamber size and function. * Mild concentric left ventricular hypertrophy. * Mild left ventricular diastolic dysfunction. Right Ventricle * Normal right ventricular structure and function. Left Atrium * Severely dilated left atrium. Right Atrium * Moderately dilated right atrium. Aortic Valve * Aortic valve not well visualized. * No aortic regurgitation. * No aortic stenosis. Mitral Valve * Normal mitral valve structure and function. * No mitral regurgitation. * No mitral stenosis. Tricuspid Valve * Normal tricuspid valve structure and function. * Trace tricuspid regurgitation. * No evidence of pulmonary hypertension identified. RVSP was not well obtained due to poor TR jet. Pulmonic Valve * Pulmonic valve not well visualized. Aorta * Normally sized aortic root. Pericardium * The pericardium appears normal. IVC * Normal IVC dimensions and inspiratory collapse. Pulmonary Artery * Normal visualized portions of the main pulmonary artery. Consult Discharge Plan - Plan Referrals: Elias Iglesias DO [Primary Care Provider] -
[2017-03-12] MEDS: *HR* Rivaroxaban 10 MG TABLET PO SCH (17:43)
[2017-03-12] MEDS: Topiramate 100 MG TABLET PO SCH (21:26)
[2017-03-12] MEDS: Acetaminophen 325 MG TABLET PO PRN (21:27)
[2017-03-13] MEDS: Ipratropium/Albuterol Neb 3 ML IH SCH ×4 (03:31→15:52)
[2017-03-13 05:15] LABS: Basophils % 0.2 %; Eosinophils % 0.5 %; Hematocrit 37.7 % (35.3-44.9); Hemoglobin 11.4 g/dL (11.5-15.4); Immature Granulocytes % 0.5 % (0-4); Lymphocytes # 2.9 K/mcL (0.6-4.6); Lymphocytes % 33.2 %; Mean Corpuscular HGB Conc 30.2 g/dL (31.6-35.5); Mean Corpuscular Hemoglobin 26.4 pg (28.0-33.3); Mean Corpuscular Volume 87.3 fL (83.0-100.0); Mean Platelet Volume 9.8 fL (9.4-12.4); Monocytes # 0.6 K/mcL (0.0-1.3); Monocytes % 7.3 %; Neutrophils # 5.1 K/mcL (1.6-8.9); Platelet Count 182 K/mcL (140-400); Red Blood Count 4.32 M/mcL (3.82-4.97); Red Cell Distribution Width 14.7 % (11.5-14.5); Segmented Neutrophils % 58.3 %
[2017-03-13 05:31] LABS: Alanine Aminotransferase 10 Units/L (0-55); Albumin 2.7 g/dL (3.5-5.0); Albumin/Globulin Ratio 0.8 (1.1-2.2); Alkaline Phosphatase 57 Units/L (38-126); Aspartate Amino Transferase 16 Units/L (5-34); BUN/Creatinine Ratio 28 (6-26); Bilirubin,Total 0.4 mg/dL (0.2-1.2); Blood Urea Nitrogen 22 mg/dL (7-20); Calcium 8.9 mg/dL (8.6-10.8); Carbon Dioxide 31 mEq/L (19-29); Chloride 104 mEq/L (98-109); Globulin 3.3 g/dL (2.4-3.5); Glucose 117 mg/dL (70-99); Osmolality,Calculated 296 (280-300); Potassium 3.4 mEq/L (3.5-4.5); Sodium 141 mEq/L (136-145); eGFR For African Americans > 60 (> 60); eGFR For Non-African Americans > 60 (> 60)
[2017-03-13] MEDS ORDERED: Regadenoson 0.4 MG/5 ML SYRINGE IVP ONE (06:31)
[2017-03-13] MEDS ORDERED: predniSONE 20 MG TABLET PO SCH (09:00)
[2017-03-13 09:12] VITALS: BP 152/64
[2017-03-13] MEDS: GuaiFENesin/Dextromethorphan TABLET PO SCH (10:08)
[2017-03-13] MEDS: Lisinopril 20 MG TABLET PO SCH (10:08)
[2017-03-13] MEDS: Famotidine 20 MG TABLET PO SCH (10:08)
[2017-03-13] MEDS: Aspirin 81 MG TAB.CHEW PO SCH (10:08)
[2017-03-13] MEDS: Furosemide 40 MG/4 ML VIAL IVP SCH (10:09)
[2017-03-13] MEDS: Nicotine 14 MG PATCH.TD24 TD SCH (10:09)
[2017-03-13] MEDS: cefTRIAXone 1,000 MG in Water for inj. (sterile) 10 ML IVP SCH (10:09)
[2017-03-13] MEDS: Beclomethasone 80mcg MDI IH SCH (10:50)
--- NOTE | 2017-03-13 11:07 | Discharge Summary ---
Date of Encounter: 03/13/17 Time of Encounter: 11:00 - Discharge Diagnosis (1) Acute CHF Priority: Primary Status: Acute Qualifiers: Congestive heart failure type: diastolic Qualified Code(s): I50.31 - Acute diastolic (congestive) heart failure (2) Acute exacerbation of chronic obstructive pulmonary disease (COPD) Priority: Secondary Status: Acute (3) Chest pain Priority: Secondary Status: Acute Qualifiers: Chest pain type: precordial pain Qualified Code(s): R07.2 - Precordial pain (4) Dizziness Priority: Secondary Status: Resolved (5) UTI (urinary tract infection) Priority: Secondary Status: Acute Qualifiers: Urinary tract infection type: acute cystitis Hematuria presence: with hematuria Qualified Code(s): N30.01 - Acute cystitis with hematuria (6) HTN (hypertension) Priority: Secondary Status: Chronic Qualifiers: Hypertension type: essential hypertension Qualified Code(s): I10 - Essential (primary) hypertension (7) DVT prophylaxis Priority: Secondary Status: Acute - Discharge Medications Prescriptions: Cefuroxime Axetil [Cefuroxime] 250 mg PO BID #14 tablet Furosemide [Lasix] 40 mg PO DAILY #30 tablet Potassium Chloride 10 meq PO DAILY #30 tab.er.prt Home Medications: Amitriptyline [Elavil] 50 mg PO HS 02/05/16 [History] Atorvastatin [Lipitor] 40 mg PO HS 02/05/16 [History] Bupropion HCl [Wellbutrin Xl] 300 mg PO QAM 02/05/16 [History] Ergocalciferol (VITAMIN D2) [Vitamin D2] 50,000 unit PO Q2W 02/05/16 [History] Hydroxychloroquine [Plaquenuil] 200 mg PO DAILY 02/05/16 [History] Lisinopril [Zestril] 20 mg PO DAILY 02/05/16 [History] Meclizine HCl [Verticalm] 25 mg PO TID PRN 02/05/16 [History] Rivaroxaban [Xarelto] 20 mg PO DAILY 02/05/16 [History] Sertraline [Zoloft] 200 mg PO DAILY 02/05/16 [History] Tiotropium [Spiriva] 1 spray IH DAILY 02/05/16 [History] Tizanidine HCl 2 mg PO BID PRN 02/05/16 [History] Topiramate [Topamax] 100 mg PO HS 02/05/16 [History] Triamcinolone Acet 0.1% CRM [Kenalog] 1 appl TP TID PRN 02/05/16 [History] Aspirin 81 mg PO DAILY tab.chew 02/07/16 [Rx] Diclofenac Sodium [Voltaren] 1 appl TP QID 03/10/17 [History] Gabapentin [Neurontin] 1,200 mg PO HS 03/10/17 [History] Gabapentin [Neurontin] 600 mg PO BID 03/10/17 [History] Ipratropium/Albuterol Neb [Duoneb] 3 ml IH Q4-6H 03/10/17 [History] Mometasone Furoate [Asmanex] 220 mcg IH QPM 03/10/17 [History] Oxybutynin Chloride [Ditropan Xl] 5 mg PO DAILY 03/10/17 [History] SUMAtriptan succinate [Imitrex] 100 mg PO NOW PRN 03/10/17 [History] Triamterene/HCTZ 37.5/25mg [Dyazide] 1 each PO DAILY 03/10/17 [History] hydrOXYzine HCl [Hydroxyzine HCl] 12.5 - 25 mg PO Q8H 03/10/17 [History] Cefuroxime Axetil [Cefuroxime] 250 mg PO BID #14 tablet 03/13/17 [Rx] Furosemide [Lasix] 40 mg PO DAILY #30 tablet 03/13/17 [Rx] Potassium Chloride 10 meq PO DAILY #30 tab.er.prt 03/13/17 [Rx] Allergies/Adverse Reactions: 3 Allergy/AdvReac Type Severity Reaction Status Date / Time [place] Allergy Hives Verified 03/10/17 20:42 naproxen AdvReac See Verified 03/10/17 20:42 Comments pregabalin [From Lyrica] AdvReac Vomiting Verified 03/10/17 20:42 Date of admission: 03/10/17 21:50 Primary care physician: Elias Iglesias DO Discharging clinician: Miriam Mckeon Anticipated date of discharge: 03/13/17 - Patient Status Disposition: Home Health Service Condition: Good Functional capacity at discharge: independent ambulation Overall status at discharge: patient is progressing back to baseline - Discharge Instructions Instructions: Cefuroxime (By mouth), Furosemide (By mouth), Potassium Chloride (By mouth), Heart Failure (DC), Urinary Tract Infection in Women (DC), Chronic Obstructive Pulmonary Disease (DC) Follow Up With: Tobi Tan DO [Partnered Physician] - (Cardiology office will call you with appt date & time.) Elias Iglesias DO [Primary Care Provider] - (Keep your appt on but call and try to get a closer appt date around 1 week after discharge.) Additional Instructions: Continue [facility]. Continue your current Home Oxygen prescription. We gave you prescription for Wheelchair. Take this to your manager mining so she can obtain this. We electronically sent your prescriptions to [facility] pharmacy for you to parts picker. They should be finished by the time you get there. - Diet and Activity Activity: increase activity as tolerated Diet: low fat, low cholesterol, low salt diet, other (Fluid restriction to 1.5 L per day) Hospital course: Ms. Hwang is a 66 year old female patient with a history of congestive heart failure and COPD was admitted here with acute shortness of breath along with the dizziness. She was diagnosed with acute congestive heart failure and acute exacerbation of COPD. She was also mildly dehydrated on presentation. Her urine was also concerning for acute UTI. She was started on treatment for these conditions with intravenous diuretics, bronchodilators, intravenous steroids and intravenous antibiotics. She has improved quickly with this treatment plan with significant improvement in her shortness of breath and lower extremity swelling. Her urine culture is positive for Escherichia coli with sensitivity to cephalosporins. She will be discharged on she will complete antibiotic course for this with Ceftin. Patient also complained of chest pain on initial presentation. A stress test was ordered for her but this was unable to be completed as patient could not lie flat. Her troponins were negative here and a 2-D echocardiogram done here showed an EF of 70% with mild left ventricular diastolic dysfunction. Her chest pain has resolved. Most likely it could be from demand ischemia related to congestive heart failure and COPD. She will need follow-up with cardiology for further management as outpatient. At this time, she is clinically stable for discharge. She has been evaluated by physical therapy and recommended placement to skilled rehabilitation. However she wishes to go home on home health. She will be discharged home today and will complete antibiotic course for her UTI. She will continue to take Lasix for her CHF. She is already on Xarelto for anticoagulation due to prior DVT. - Time Spent with Patient Total time spent providing and/or coordinating discharge services: Greater than 30 minutes (40 min) - Constitutional Vitals: Temp Pulse Resp BP Pulse Ox 97.8 F 86 19 152/64 95 03/13/17 05:28 03/13/17 09:12 03/13/17 09:12 03/13/17 09:12 03/13/17 09:12 General appearance: Present: cooperative, A&O X 3, morbidly obese, pleasant, no acute distress, answers questions appropriately - Neck Neck exam general surgery: Present: supple, trachea midline. Absent: lymphadenopathy - Cardiovascular Cardiovascular exam: Present: RRR, +S1, +S2. Absent: diastolic murmur, gallop, rubs, systolic murmur - GI/Abdominal GI/Abdominal exam: Present: normal bowel sounds, soft, no peritoneal signs. Absent: distended, tenderness - Extremities Exam Extremities exam: Present: pedal edema (trace), warm, radial pulses palpable and symmetrical. Absent: calf tenderness, cyanotic - Neurological Exam Neurological exam: Present: CN II-XII intact, oriented X3, no focal deficits. Absent: facial droop, speech deficit
--- NOTE | 2017-03-13 11:13 | Physician Discharge Referral ---
Home Health/Hosp Referral Info Transfer to: Home Health Provider in Charge Post Discharge: PCP - Diagnosis (1) Acute CHF Priority: Primary Status: Acute (2) Acute exacerbation of chronic obstructive pulmonary disease (COPD) Priority: Secondary Status: Acute (3) Chest pain Priority: Secondary Status: Acute (4) Dizziness Priority: Secondary Status: Resolved (5) UTI (urinary tract infection) Priority: Secondary Status: Acute (6) HTN (hypertension) Priority: Secondary Status: Chronic (7) DVT prophylaxis Priority: Secondary Status: Acute - Respiratory Orders Smoking Cessation: Smoking cessation has been advised. For more information, call the [place] Tobacco Quit Line at 2-271-LPZV-NOW. - Diet/Nutrition Diet/Nutrition Orders: Cardiac - Activity Activity Orders: Walker - Services Needed Following services are medically necessary services: Nursing, Home Health Aide, Physical Therapy - Transfer Medications Prescriptions: Cefuroxime Axetil [Cefuroxime] 250 mg PO BID #14 tablet Furosemide [Lasix] 40 mg PO DAILY #30 tablet Potassium Chloride 10 meq PO DAILY #30 tab.er.prt Home Medications: Amitriptyline [Elavil] 50 mg PO HS 02/05/16 [History] Atorvastatin [Lipitor] 40 mg PO HS 02/05/16 [History] Bupropion HCl [Wellbutrin Xl] 300 mg PO QAM 02/05/16 [History] Ergocalciferol (VITAMIN D2) [Vitamin D2] 50,000 unit PO Q2W 02/05/16 [History] Hydroxychloroquine [Plaquenuil] 200 mg PO DAILY 02/05/16 [History] Lisinopril [Zestril] 20 mg PO DAILY 02/05/16 [History] Meclizine HCl [Verticalm] 25 mg PO TID PRN 02/05/16 [History] Rivaroxaban [Xarelto] 20 mg PO DAILY 02/05/16 [History] Sertraline [Zoloft] 200 mg PO DAILY 02/05/16 [History] Tiotropium [Spiriva] 1 spray IH DAILY 02/05/16 [History] Tizanidine HCl 2 mg PO BID PRN 02/05/16 [History] Topiramate [Topamax] 100 mg PO HS 02/05/16 [History] Triamcinolone Acet 0.1% CRM [Kenalog] 1 appl TP TID PRN 02/05/16 [History] Aspirin 81 mg PO DAILY tab.chew 02/07/16 [Rx] Diclofenac Sodium [Voltaren] 1 appl TP QID 03/10/17 [History] Gabapentin [Neurontin] 1,200 mg PO HS 03/10/17 [History] Gabapentin [Neurontin] 600 mg PO BID 03/10/17 [History] Ipratropium/Albuterol Neb [Duoneb] 3 ml IH Q4-6H 03/10/17 [History] Mometasone Furoate [Asmanex] 220 mcg IH QPM 03/10/17 [History] Oxybutynin Chloride [Ditropan Xl] 5 mg PO DAILY 03/10/17 [History] SUMAtriptan succinate [Imitrex] 100 mg PO NOW PRN 03/10/17 [History] Triamterene/HCTZ 37.5/25mg [Dyazide] 1 each PO DAILY 03/10/17 [History] hydrOXYzine HCl [Hydroxyzine HCl] 12.5 - 25 mg PO Q8H 03/10/17 [History] Cefuroxime Axetil [Cefuroxime] 250 mg PO BID #14 tablet 03/13/17 [Rx] Furosemide [Lasix] 40 mg PO DAILY #30 tablet 03/13/17 [Rx] Potassium Chloride 10 meq PO DAILY #30 tab.er.prt 03/13/17 [Rx] Allergies/Adverse Reactions: 3 Allergy/AdvReac Type Severity Reaction Status Date / Time [place] Allergy Hives Verified 03/10/17 20:42 naproxen AdvReac See Verified 03/10/17 20:42 Comments pregabalin [From Lyrica] AdvReac Vomiting Verified 03/10/17 20:42 Certification: Further, I certify that my clinical findings support that this patient is homebound (i.e. absences from home require considerable and taxing effort and are for medical reasons or catholic services or infrequently or short duration when for other reasons) because: Homebound Reason: Patient requires assistance of a person or device to safely leave home, Severity of cardiac or pulmonary status limits activity tolerance Attestation: My signature below is to certify that this patient is under my care and that I, or nurse practitioner, or a physician's food and beverage assistant working with me, has a face-to -face encounter with this patient.
--- NOTE | 2017-03-14 11:47 | Electrocardiograph Report ---
[place] [id number] Test Date: 2017-03-10 Pat Name: Rosemary Hwang Department: 103 Room: 2NE25 Gender: F Nephrologist: JESUS : 1950 Requested By: Mye Johnston Order Number: [id number] Reading MD: Chico Muniz Measurements Intervals [place] Rate: 87 P: -42 CT: 102 QRS: -1 QRSD: 91 T: 7 QT: 335 QTc: 379 Interpretive Statements SINUS RHYTHM WITH SHORT CT INTERVAL Electronically Signed On 03-14-2017 11:45:54 EST by Chico Muniz
== END 2017-03-13 14:30 | disposition home health service (06) | DRG 292 ==
LOC: 2NENU 17:35 → EMEROO 17:35 → SUATTDRO 21:50 → 2NENU 23:00
PROVIDERS: ADMIT Internal Medicine; ATTEND Internal Medicine

== ENCOUNTER 2021-03-20 19:50 | Inpatient (IN) ==
[2021-03-20 21:36] LABS: Basophils % 0.3 %; Eosinophils % 0.3 %; Hematocrit 37.1 % (35.3-44.9); Hemoglobin 11.7 g/dL (11.5-15.4); Immature Granulocytes % 1.6 % (0-4); Lymphocytes # 0.6 K/mcL (0.6-4.6); Lymphocytes % 8.1 %; Mean Corpuscular HGB Conc 31.5 g/dL (31.6-35.5); Mean Corpuscular Hemoglobin 28.2 pg (28.0-33.3); Mean Corpuscular Volume 89.4 fL (83.0-100.0); Mean Platelet Volume 10.7 fL (9.4-12.4); Monocytes # 0.3 K/mcL (0.0-1.3); Neutrophils # 5.8 K/mcL (1.6-8.9); Nucleated Red Blood Cells 1.8 /100 WBC (0); Platelet Count 172 K/mcL (140-400); Red Blood Count 4.15 M/mcL (3.82-4.97); Red Cell Distribution Width 15.2 % (11.5-14.5); Segmented Neutrophils % 85.7 %; White Blood Count 6.8 K/mcL (4.3-11.1)
[2021-03-20 22:02] LABS: BUN/Creatinine Ratio 34 (6-26); Blood Urea Nitrogen 31 mg/dL (8-23); Calcium 8.2 mg/dL (8.6-10.3); Carbon Dioxide 33 mEq/L (23-29); Chloride 95 mEq/L (98-107); Glucose 121 mg/dL (70-105); Osmolality,Calculated 290 (280-300); Sodium 136 mEq/L (136-145); Troponin I 0.06 ng/mL (< 0.04); eGFR For African Americans > 60 (> 60); eGFR For Non-African Americans > 60 (> 60)
[2021-03-20] MEDS ORDERED: Aspirin 81 MG TAB.CHEW PO ONE (22:15)
[2021-03-20 22:59] LABS: Influenza A PCR Negative (Negative); Influenza B PCR Negative (Negative); Resp. Syncytial Virus PCR Negative (Negative)
[2021-03-20 23:00] LABS: SARS-CoV-2 by PCR (In House) Negative (Negative)
[2021-03-21] MEDS ORDERED: cefTRIAXone 1,000 MG in 0.9 % Sodium Chloride Mini Bag 100 ML IVPB ONE (00:01)
[2021-03-21] MEDS ORDERED: Azithromycin 500 MG in 0.9 % Sodium Chloride 250 ML IVPB ONE (00:01)
[2021-03-21] MEDS ORDERED: Naloxone 0.4 MG/ML INJ IVP PRN (00:28)
[2021-03-21] MEDS ORDERED: *HR* HYDROcodone/Acet 5/325 mg TABLET PO PRN (00:28)
[2021-03-21] MEDS ORDERED: Acetaminophen 325 MG TABLET PO PRN (00:28)
[2021-03-21] MEDS ORDERED: *HR* Promethazine 25 MG/ML VIAL IM PRN (00:28)
[2021-03-21] MEDS ORDERED: methylPREDNISolone 125 MG/2 ML VIAL IVP STA (00:31)
[2021-03-21] MEDS ORDERED: Furosemide 40 MG/4 ML VIAL IVP ONE (01:38)
[2021-03-21] MEDS ORDERED: D5% in Water 1,000 ML IVC PRN (02:41)
[2021-03-21] MEDS ORDERED: *HR* Dextrose 50 % in Water (Syg) 50 ML SYRINGE IVP PRN (02:41)
[2021-03-21] MEDS ORDERED: Dextrose Gel 15 GM/37.5 ML TUBE PO PRN ×2 (02:41)
[2021-03-21 02:55] LABS: Basophils % 0.1 %; Eosinophils % 0.3 %; Hemoglobin 11.2 g/dL (11.5-15.4); Immature Granulocytes % 1.3 % (0-4); Lymphocytes # 0.5 K/mcL (0.6-4.6); Lymphocytes % 6.9 %; Mean Corpuscular HGB Conc 30.3 g/dL (31.6-35.5); Mean Corpuscular Hemoglobin 27.4 pg (28.0-33.3); Mean Corpuscular Volume 90.5 fL (83.0-100.0); Mean Platelet Volume 10.3 fL (9.4-12.4); Monocytes # 0.3 K/mcL (0.0-1.3); Monocytes % 4.3 %; Neutrophils # 5.9 K/mcL (1.6-8.9); Nucleated Red Blood Cells 1.6 /100 WBC (0); Platelet Count 160 K/mcL (140-400); Red Blood Count 4.09 M/mcL (3.82-4.97); Red Cell Distribution Width 14.9 % (11.5-14.5); Segmented Neutrophils % 87.1 %; White Blood Count 6.8 K/mcL (4.3-11.1)
[2021-03-21 03:01] LABS: INR 1.3; Prothrombin Time 14.9 Seconds (9.4-12.1)
[2021-03-21 03:28] LABS: Alanine Aminotransferase 644 Units/L (7-52); Albumin 2.9 g/dL (3.5-5.7); Alkaline Phosphatase 61 Units/L (34-104); Aspartate Amino Transferase 419 Units/L (13-39); BUN/Creatinine Ratio 33 (6-26); Bilirubin,Total 0.5 mg/dL (0.3-1.0); Blood Urea Nitrogen 27 mg/dL (8-23); Calcium 7.4 mg/dL (8.6-10.3); Carbon Dioxide 31 mEq/L (23-29); Chloride 101 mEq/L (98-107); Glucose 102 mg/dL (70-105); Magnesium 1.9 mg/dL (1.6-2.6); Osmolality,Calculated 291 (280-300); Potassium 3.2 mEq/L (3.5-5.1); Sodium 138 mEq/L (136-145); Total Protein 5.9 g/dL (6.4-8.9); eGFR For African Americans > 60 (> 60); eGFR For Non-African Americans > 60 (> 60)
[2021-03-21] MEDS ORDERED: Isovue-370 500 ML BOTTLE IVP ONE (03:30)
[2021-03-21] MEDS ORDERED: Perflutren Lipid Microsphere 1.3 ML in 0.9 % Sodium Chloride 8.7 ML IVP PRN (03:31)
[2021-03-21] MEDS: Ipratropium/Albuterol Neb 3 ML IH SCH ×8 (04:23→23:50)
[2021-03-21] MEDS: MethylPREDNISolone 40 MG/ML VIAL IVP SCH ×3 (04:57→20:49)
[2021-03-21 05:20] LABS: Chol/HDL Ratio 8.1 (0-4.9); Cholesterol 113 mg/dL (< 200); HDL Cholesterol 14 mg/dL (40-59); LDL Cholesterol,Calculated 66 mg/dL (< 100); Thyroid Stimulating Hormone 3.579 mcIU/mL (0.340-5.600); Triglycerides 163 mg/dL (< 150)
[2021-03-21] MEDS: Calcium Gluconate 1gm/50mL 1 GM/50 ML BAG IVPB SCH ×2 (05:34→06:24)
[2021-03-21] MEDS ORDERED: Vancomycin 2,000 MG/520 ML IV.SOLN IVPB ONE (06:00)
[2021-03-21 06:08] LABS: Hepatitis B Surface Antigen Nonreactive (Nonreactive)
[2021-03-21 06:37] LABS: Hepatitis B Core IgM Nonreactive (Nonreactive); Hepatitis C Virus Antibody Nonreactive (Nonreactive)
[2021-03-21 06:38] LABS: Hepatitis A Antibody IgM Nonreactive (Nonreactive)
[2021-03-21] MEDS ORDERED: Cefepime HCl 2,000 MG in 0.9 % Sodium Chloride Mini Bag 100 ML IVPB SCH (08:00)
[2021-03-21] MEDS: Lactobacillus 1 EACH CAP.SPRINK PO SCH ×2 (08:15→20:49)
[2021-03-21] MEDS: Metoprolol XL (24 HR) Succ 25 MG TAB.ER.24H PO SCH (08:15)
[2021-03-21] MEDS: Multivit/Ca/Min/Fe/FA 1 TAB TABLET PO SCH (08:16)
[2021-03-21] MEDS: Furosemide 20 MG/2 ML VIAL IVP SCH ×2 (08:16→20:49)
[2021-03-21] MEDS: Chlorhexidine Rinse 15 ML MOUTHWASH MM SCH ×2 (08:16→20:48)
[2021-03-21] MEDS: Piperacillin/Tazobactam 3.375 GM in 0.9 % Sodium Chloride Mini Bag 100 ML IVPB SCH ×3 (08:16→23:50)
[2021-03-21] MEDS: Albumin 25% 25gram/100mL 25 GM/100 ML IV.SOLN IVPB SCH ×3 (08:17→20:50)
[2021-03-21] MEDS ORDERED: cefTRIAXone 1,000 MG in 0.9 % Sodium Chloride Mini Bag 100 ML IVPB SCH (09:00)
[2021-03-21] MEDS: Aspirin 81 MG TAB.CHEW PO SCH (09:00)
[2021-03-21] MEDS: Nicotine 21 MG PATCH.TD24 TD SCH (09:36)
[2021-03-21 09:41] LABS: Estimated Average Glucose 146 mg/dl; Hemoglobin A1C 6.7 %
[2021-03-21] MEDS: Budesonide/Formoterol 160/4.5 1 PUFF INH IH SCH ×3 (11:11→20:59)
[2021-03-21] MEDS: *HR* Rivaroxaban 10 MG TABLET PO SCH (17:21)
[2021-03-21] MEDS ORDERED: Vancomycin 1,500 MG/265 ML IV.SOLN IVPB SCH ×2 (18:00→22:00)
[2021-03-22] MEDS: Ipratropium/Albuterol Neb 3 ML IH SCH ×5 (03:39→20:46)
[2021-03-22 04:18] LABS: Hematocrit 33.4 % (35.3-44.9); Hemoglobin 10.2 g/dL (11.5-15.4); Immature Granulocytes % 0.7 % (0-4); Lymphocytes # 0.2 K/mcL (0.6-4.6); Lymphocytes % 2.5 %; Mean Corpuscular HGB Conc 30.5 g/dL (31.6-35.5); Mean Corpuscular Hemoglobin 27.8 pg (28.0-33.3); Mean Platelet Volume 10.5 fL (9.4-12.4); Monocytes # 0.4 K/mcL (0.0-1.3); Neutrophils # 8.6 K/mcL (1.6-8.9); Platelet Count 158 K/mcL (140-400); Red Blood Count 3.67 M/mcL (3.82-4.97); Red Cell Distribution Width 14.6 % (11.5-14.5); Segmented Neutrophils % 92.8 %; White Blood Count 9.2 K/mcL (4.3-11.1)
[2021-03-22 04:27] LABS: Alanine Aminotransferase 394 Units/L (7-52); Albumin 3.6 g/dL (3.5-5.7); Albumin/Globulin Ratio 1.2 (1.1-2.2); Alkaline Phosphatase 53 Units/L (34-104); Aspartate Amino Transferase 114 Units/L (13-39); BUN/Creatinine Ratio 26 (6-26); Bilirubin,Direct 0.3 mg/dL (0.0-0.2); Bilirubin,Indirect 0.4 mg/dL (0.0-1.0); Bilirubin,Total 0.7 mg/dL (0.3-1.0); Blood Urea Nitrogen 24 mg/dL (8-23); Calcium 8.7 mg/dL (8.6-10.3); Carbon Dioxide 37 mEq/L (23-29); Chloride 97 mEq/L (98-107); Glucose 170 mg/dL (70-105); Magnesium 1.8 mg/dL (1.6-2.6); Osmolality,Calculated 298 (280-300); Potassium 3.8 mEq/L (3.5-5.1); Sodium 140 mEq/L (136-145); Total Protein 6.6 g/dL (6.4-8.9); eGFR For African Americans > 60 (> 60); eGFR For Non-African Americans > 60 (> 60)
[2021-03-22 04:33] LABS: VBG HCO3 37 mEq/L (21-27); VBG PCO2 71 mmHg (41-51); VBG PH 7.32 pH Units (7.32-7.42); VBG PO2 56 mmHg (25-50)
[2021-03-22] MEDS: MethylPREDNISolone 40 MG/ML VIAL IVP SCH ×3 (04:40→20:57)
[2021-03-22] MEDS: Nystatin POWDER 30 GM BOTTLE TP SCH ×4 (04:41→21:11)
[2021-03-22] MEDS: Budesonide/Formoterol 160/4.5 1 PUFF INH IH SCH ×2 (07:47→20:46)
[2021-03-22] MEDS: Aspirin 81 MG TAB.CHEW PO SCH (08:36)
[2021-03-22] MEDS: Metoprolol XL (24 HR) Succ 25 MG TAB.ER.24H PO SCH (08:36)
[2021-03-22] MEDS: Multivit/Ca/Min/Fe/FA 1 TAB TABLET PO SCH (08:36)
[2021-03-22] MEDS: Lactobacillus 1 EACH CAP.SPRINK PO SCH ×2 (08:36→20:57)
[2021-03-22] MEDS: Chlorhexidine Rinse 15 ML MOUTHWASH MM SCH ×2 (08:37→20:56)
[2021-03-22] MEDS: Piperacillin/Tazobactam 3.375 GM in 0.9 % Sodium Chloride Mini Bag 100 ML IVPB SCH ×3 (08:37→23:26)
[2021-03-22] MEDS: Albumin 25% 25gram/100mL 25 GM/100 ML IV.SOLN IVPB SCH ×2 (08:37→20:58)
[2021-03-22] MEDS: Nicotine 21 MG PATCH.TD24 TD SCH (08:41)
[2021-03-22] MEDS ORDERED: Azithromycin 250 MG TABLET PO SCH (09:00)
[2021-03-22] MEDS: Furosemide 20 MG/2 ML VIAL IVP SCH ×2 (10:42→20:58)
[2021-03-22] MEDS: Gabapentin 300 MG CAPSULE PO SCH ×2 (15:30→20:56)
[2021-03-22] MEDS: *HR* Rivaroxaban 10 MG TABLET PO SCH (16:33)
[2021-03-22] MEDS: Sucralfate 1 GM TABLET PO SCH (16:33)
[2021-03-22] MEDS: Topiramate 100 MG TABLET PO SCH (20:58)
[2021-03-22] MEDS ORDERED: Ondansetron 4 MG/2 ML VIAL IVP ONE (23:21)
[2021-03-23] MEDS: Ipratropium/Albuterol Neb 3 ML IH SCH ×7 (00:02→23:42)
[2021-03-23] MEDS: MethylPREDNISolone 40 MG/ML VIAL IVP SCH ×3 (05:01→20:49)
[2021-03-23 05:42] LABS: Basophils % 0.1 %; Hematocrit 32.8 % (35.3-44.9); Hemoglobin 9.7 g/dL (11.5-15.4); Immature Granulocytes % 0.7 % (0-4); Lymphocytes # 0.3 K/mcL (0.6-4.6); Lymphocytes % 3.9 %; Mean Corpuscular HGB Conc 29.6 g/dL (31.6-35.5); Mean Corpuscular Hemoglobin 27.2 pg (28.0-33.3); Mean Corpuscular Volume 91.9 fL (83.0-100.0); Mean Platelet Volume 10.4 fL (9.4-12.4); Monocytes # 0.2 K/mcL (0.0-1.3); Monocytes % 2.4 %; Neutrophils # 6.2 K/mcL (1.6-8.9); Nucleated Red Blood Cells 0.3 /100 WBC (0); Platelet Count 133 K/mcL (140-400); Red Blood Count 3.57 M/mcL (3.82-4.97); Red Cell Distribution Width 14.9 % (11.5-14.5); Segmented Neutrophils % 92.9 %; White Blood Count 6.7 K/mcL (4.3-11.1)
[2021-03-23 05:55] LABS: VBG HCO3 40 mEq/L (21-27); VBG PCO2 81 mmHg (41-51); VBG PO2 147 mmHg (25-50)
[2021-03-23 06:21] LABS: Alanine Aminotransferase 215 Units/L (7-52); Albumin 3.7 g/dL (3.5-5.7); Albumin/Globulin Ratio 1.5 (1.1-2.2); Alkaline Phosphatase 45 Units/L (34-104); Aspartate Amino Transferase 37 Units/L (13-39); BUN/Creatinine Ratio 33 (6-26); Bilirubin,Direct 0.4 mg/dL (0.0-0.2); Bilirubin,Indirect 0.4 mg/dL (0.0-1.0); Bilirubin,Total 0.8 mg/dL (0.3-1.0); Blood Urea Nitrogen 29 mg/dL (8-23); Calcium 8.8 mg/dL (8.6-10.3); Carbon Dioxide 40 mEq/L (23-29); Chloride 96 mEq/L (98-107); Globulin 2.5 g/dL (2.4-3.5); Glucose 151 mg/dL (70-105); Magnesium 1.9 mg/dL (1.6-2.6); Osmolality,Calculated 299 (280-300); Potassium 3.8 mEq/L (3.5-5.1); Sodium 140 mEq/L (136-145); Total Protein 6.2 g/dL (6.4-8.9); eGFR For African Americans > 60 (> 60); eGFR For Non-African Americans > 60 (> 60)
[2021-03-23] MEDS: Gabapentin 300 MG CAPSULE PO SCH ×3 (08:13→20:46)
[2021-03-23] MEDS: Chlorhexidine Rinse 15 ML MOUTHWASH MM SCH ×2 (08:13→20:46)
[2021-03-23] MEDS: Nicotine 21 MG PATCH.TD24 TD SCH (08:13)
[2021-03-23] MEDS: Lactobacillus 1 EACH CAP.SPRINK PO SCH ×2 (08:13→20:46)
[2021-03-23] MEDS: Aspirin 81 MG TAB.CHEW PO SCH (08:13)
[2021-03-23] MEDS: Sucralfate 1 GM TABLET PO SCH ×2 (08:13→17:01)
[2021-03-23] MEDS: FLUoxetine 20 MG CAPSULE PO SCH (08:13)
[2021-03-23] MEDS: Metoprolol XL (24 HR) Succ 50 MG TAB.ER.24H PO SCH (08:14)
[2021-03-23] MEDS: Multivit/Ca/Min/Fe/FA 1 TAB TABLET PO SCH (08:14)
[2021-03-23] MEDS: Budesonide/Formoterol 160/4.5 1 PUFF INH IH SCH ×2 (08:25→20:01)
[2021-03-23] MEDS: Piperacillin/Tazobactam 3.375 GM in 0.9 % Sodium Chloride Mini Bag 100 ML IVPB SCH ×2 (09:30→16:32)
[2021-03-23] MEDS: Furosemide 20 MG/2 ML VIAL IVP SCH ×2 (09:31→20:49)
[2021-03-23] MEDS: Nystatin POWDER 30 GM BOTTLE TP SCH (09:32)
[2021-03-23] MEDS ORDERED: *HR* LORazepam Oral Conc 2 MG/ML SL PRN (11:00)
[2021-03-23 12:38] LABS: ABG Base Excess 10 mEq/L (-2 to 3); ABG HCO3 37 mEq/L (21-27); ABG Oxygen Saturation 90 % (95-98); ABG PCO2 61 mmHg (35-45); ABG PH 7.39 pH Units (7.32-7.45); ABG PO2 62 mmHg (85-104); ABG TCO2 38 mEq/L (20-26); Blood Gas Modality BiLevel
[2021-03-23] MEDS ORDERED: Lidocaine -MPF 4% 5 ML AMPUL ONE (13:49)
[2021-03-23] MEDS ORDERED: *HR* Succinylcholine 200 MG/10 ML VIAL IVP ONE (13:52)
[2021-03-23] MEDS ORDERED: *HR* Rocuronium Bromide 50 MG/5 ML VIAL ONE (13:52)
[2021-03-23 13:56] LABS: Source of Body Fluid LEFT LOWER LOBE LUNG
[2021-03-23] MEDS: *HR* Rivaroxaban 10 MG TABLET PO SCH (17:01)
[2021-03-23 17:26] LABS: Appearance of Body Fluid Hazy (Clear); Volume of Body Fluid 17 mL
[2021-03-23] MEDS: Topiramate 100 MG TABLET PO SCH (20:47)
[2021-03-24] MEDS: Nystatin POWDER 30 GM BOTTLE TP SCH ×3 (00:20→22:20)
[2021-03-24] MEDS: Piperacillin/Tazobactam 3.375 GM in 0.9 % Sodium Chloride Mini Bag 100 ML IVPB SCH ×3 (00:22→14:50)
[2021-03-24] MEDS: Ipratropium/Albuterol Neb 3 ML IH SCH ×6 (04:01→23:35)
[2021-03-24 04:48] LABS: Hematocrit 32.5 % (35.3-44.9); Hemoglobin 9.7 g/dL (11.5-15.4); Immature Granulocytes % 0.8 % (0-4); Lymphocytes # 0.3 K/mcL (0.6-4.6); Lymphocytes % 5.6 %; Mean Corpuscular HGB Conc 29.8 g/dL (31.6-35.5); Mean Corpuscular Hemoglobin 27.2 pg (28.0-33.3); Mean Platelet Volume 10.2 fL (9.4-12.4); Monocytes # 0.3 K/mcL (0.0-1.3); Monocytes % 5.8 %; Neutrophils # 4.7 K/mcL (1.6-8.9); Platelet Count 136 K/mcL (140-400); Red Blood Count 3.57 M/mcL (3.82-4.97); Red Cell Distribution Width 14.7 % (11.5-14.5); Segmented Neutrophils % 87.8 %; White Blood Count 5.3 K/mcL (4.3-11.1)
[2021-03-24 04:49] LABS: VBG HCO3 39 mEq/L (21-27); VBG PCO2 67 mmHg (41-51); VBG PH 7.37 pH Units (7.32-7.42); VBG PO2 53 mmHg (25-50)
[2021-03-24 05:18] LABS: Alanine Aminotransferase 146 Units/L (7-52); Albumin 3.3 g/dL (3.5-5.7); Albumin/Globulin Ratio 1.2 (1.1-2.2); Alkaline Phosphatase 40 Units/L (34-104); Aspartate Amino Transferase 20 Units/L (13-39); BUN/Creatinine Ratio 46 (6-26); Bilirubin,Direct 0.2 mg/dL (0.0-0.2); Bilirubin,Indirect 0.5 mg/dL (0.0-1.0); Bilirubin,Total 0.7 mg/dL (0.3-1.0); Blood Urea Nitrogen 38 mg/dL (8-23); Calcium 8.6 mg/dL (8.6-10.3); Carbon Dioxide 40 mEq/L (23-29); Chloride 97 mEq/L (98-107); Globulin 2.8 g/dL (2.4-3.5); Glucose 136 mg/dL (70-105); Osmolality,Calculated 303 (280-300); Potassium 3.3 mEq/L (3.5-5.1); Sodium 141 mEq/L (136-145); Total Protein 6.1 g/dL (6.4-8.9); eGFR For African Americans > 60 (> 60); eGFR For Non-African Americans > 60 (> 60)
[2021-03-24] MEDS: MethylPREDNISolone 40 MG/ML VIAL IVP SCH ×3 (06:33→22:20)
[2021-03-24] MEDS ORDERED: Potassium Chloride Elixir 20 MEQ/15 ML UDC PO ONE (09:00)
[2021-03-24] MEDS: Aspirin 81 MG TAB.CHEW PO SCH (09:15)
[2021-03-24] MEDS: Multivit/Ca/Min/Fe/FA 1 TAB TABLET PO SCH (09:15)
[2021-03-24] MEDS: Lactobacillus 1 EACH CAP.SPRINK PO SCH ×2 (09:15→22:19)
[2021-03-24] MEDS: Gabapentin 300 MG CAPSULE PO SCH ×3 (09:16→22:19)
[2021-03-24] MEDS: FLUoxetine 20 MG CAPSULE PO SCH (09:16)
[2021-03-24] MEDS: Metoprolol XL (24 HR) Succ 50 MG TAB.ER.24H PO SCH (09:16)
[2021-03-24] MEDS: Furosemide 20 MG/2 ML VIAL IVP SCH ×2 (09:17→22:19)
[2021-03-24] MEDS: Chlorhexidine Rinse 15 ML MOUTHWASH MM SCH ×2 (09:17→22:19)
[2021-03-24] MEDS: Nicotine 21 MG PATCH.TD24 TD SCH (09:18)
[2021-03-24] MEDS: Sucralfate 1 GM TABLET PO SCH ×2 (09:21→16:42)
[2021-03-24] MEDS: Budesonide/Formoterol 160/4.5 1 PUFF INH IH SCH ×2 (10:42→19:37)
[2021-03-24] MEDS: *HR* Rivaroxaban 10 MG TABLET PO SCH (16:42)
[2021-03-24] MEDS: Topiramate 100 MG TABLET PO SCH (22:19)
[2021-03-25] MEDS: Piperacillin/Tazobactam 3.375 GM in 0.9 % Sodium Chloride Mini Bag 100 ML IVPB SCH ×4 (00:41→23:30)
[2021-03-25] MEDS: Ipratropium/Albuterol Neb 3 ML IH SCH ×6 (04:39→23:12)
[2021-03-25 05:10] LABS: VBG HCO3 36 mEq/L (21-27); VBG PCO2 64 mmHg (41-51); VBG PH 7.35 pH Units (7.32-7.42); VBG PO2 87 mmHg (25-50)
[2021-03-25 05:11] LABS: Hematocrit 34.1 % (35.3-44.9); Immature Granulocytes % 0.7 % (0-4); Lymphocytes # 0.3 K/mcL (0.6-4.6); Lymphocytes % 6.3 %; Mean Corpuscular HGB Conc 29.3 g/dL (31.6-35.5); Mean Corpuscular Hemoglobin 26.7 pg (28.0-33.3); Mean Corpuscular Volume 91.2 fL (83.0-100.0); Mean Platelet Volume 10.6 fL (9.4-12.4); Monocytes # 0.3 K/mcL (0.0-1.3); Monocytes % 4.8 %; Neutrophils # 4.8 K/mcL (1.6-8.9); Platelet Count 166 K/mcL (140-400); Red Blood Count 3.74 M/mcL (3.82-4.97); Red Cell Distribution Width 14.8 % (11.5-14.5); Segmented Neutrophils % 88.2 %; White Blood Count 5.4 K/mcL (4.3-11.1)
[2021-03-25 05:31] LABS: Alanine Aminotransferase 100 Units/L (7-52); Albumin 3.2 g/dL (3.5-5.7); Albumin/Globulin Ratio 1.2 (1.1-2.2); Alkaline Phosphatase 37 Units/L (34-104); Aspartate Amino Transferase 17 Units/L (13-39); BUN/Creatinine Ratio 37 (6-26); Bilirubin,Direct 0.2 mg/dL (0.0-0.2); Bilirubin,Indirect 0.5 mg/dL (0.0-1.0); Bilirubin,Total 0.7 mg/dL (0.3-1.0); Blood Urea Nitrogen 34 mg/dL (8-23); Calcium 8.5 mg/dL (8.6-10.3); Carbon Dioxide 36 mEq/L (23-29); Chloride 98 mEq/L (98-107); Globulin 2.6 g/dL (2.4-3.5); Glucose 149 mg/dL (70-105); Osmolality,Calculated 300 (280-300); Potassium 3.4 mEq/L (3.5-5.1); Sodium 140 mEq/L (136-145); Total Protein 5.8 g/dL (6.4-8.9); eGFR For African Americans > 60 (> 60); eGFR For Non-African Americans > 60 (> 60)
[2021-03-25] MEDS: MethylPREDNISolone 40 MG/ML VIAL IVP SCH ×2 (06:22→20:27)
[2021-03-25] MEDS: Budesonide/Formoterol 160/4.5 1 PUFF INH IH SCH ×2 (07:41→20:09)
[2021-03-25] MEDS ORDERED: MethylPREDNISolone 40 MG/ML VIAL IVP SCH (09:00)
[2021-03-25] MEDS: Lactobacillus 1 EACH CAP.SPRINK PO SCH ×2 (09:44→20:27)
[2021-03-25] MEDS: FLUoxetine 20 MG CAPSULE PO SCH (09:44)
[2021-03-25] MEDS: Furosemide 20 MG/2 ML VIAL IVP SCH ×2 (09:44→20:27)
[2021-03-25] MEDS: Gabapentin 300 MG CAPSULE PO SCH ×3 (09:44→20:26)
[2021-03-25] MEDS: Chlorhexidine Rinse 15 ML MOUTHWASH MM SCH ×2 (09:44→20:27)
[2021-03-25] MEDS: Aspirin 81 MG TAB.CHEW PO SCH (09:44)
[2021-03-25] MEDS: Multivit/Ca/Min/Fe/FA 1 TAB TABLET PO SCH (09:44)
[2021-03-25] MEDS: Metoprolol XL (24 HR) Succ 50 MG TAB.ER.24H PO SCH (09:44)
[2021-03-25] MEDS: Sucralfate 1 GM TABLET PO SCH ×2 (09:44→15:54)
[2021-03-25] MEDS: Nystatin POWDER 30 GM BOTTLE TP SCH ×2 (11:47→20:27)
[2021-03-25] MEDS: Nicotine 21 MG PATCH.TD24 TD SCH (11:47)
[2021-03-25] MEDS: *HR* Rivaroxaban 10 MG TABLET PO SCH (15:54)
[2021-03-25] MEDS: Topiramate 100 MG TABLET PO SCH (20:27)
[2021-03-26] MEDS: Ipratropium/Albuterol Neb 3 ML IH SCH ×7 (04:10→23:49)
[2021-03-26 05:04] LABS: Hematocrit 32.8 % (35.3-44.9); Hemoglobin 9.6 g/dL (11.5-15.4); Immature Granulocytes % 0.7 % (0-4); Lymphocytes # 0.3 K/mcL (0.6-4.6); Lymphocytes % 7.9 %; Mean Corpuscular HGB Conc 29.3 g/dL (31.6-35.5); Mean Corpuscular Hemoglobin 26.7 pg (28.0-33.3); Mean Corpuscular Volume 91.1 fL (83.0-100.0); Mean Platelet Volume 10.8 fL (9.4-12.4); Monocytes # 0.3 K/mcL (0.0-1.3); Monocytes % 6.4 %; Neutrophils # 3.5 K/mcL (1.6-8.9); Platelet Count 152 K/mcL (140-400); Red Cell Distribution Width 15.1 % (11.5-14.5); White Blood Count 4.1 K/mcL (4.3-11.1)
[2021-03-26 05:11] LABS: VBG HCO3 36 mEq/L (21-27); VBG PCO2 58 mmHg (41-51); VBG PO2 50 mmHg (25-50)
[2021-03-26 05:22] LABS: Alanine Aminotransferase 70 Units/L (7-52); Albumin 3.1 g/dL (3.5-5.7); Albumin/Globulin Ratio 1.2 (1.1-2.2); Alkaline Phosphatase 36 Units/L (34-104); Aspartate Amino Transferase 17 Units/L (13-39); BUN/Creatinine Ratio 29 (6-26); Bilirubin,Direct 0.2 mg/dL (0.0-0.2); Bilirubin,Indirect 0.5 mg/dL (0.0-1.0); Bilirubin,Total 0.7 mg/dL (0.3-1.0); Blood Urea Nitrogen 28 mg/dL (8-23); Calcium 8.8 mg/dL (8.6-10.3); Carbon Dioxide 39 mEq/L (23-29); Chloride 95 mEq/L (98-107); Globulin 2.6 g/dL (2.4-3.5); Glucose 136 mg/dL (70-105); Osmolality,Calculated 296 (280-300); Potassium 3.7 mEq/L (3.5-5.1); Sodium 139 mEq/L (136-145); Total Protein 5.7 g/dL (6.4-8.9); eGFR For African Americans > 60 (> 60); eGFR For Non-African Americans 57 (> 60)
[2021-03-26] MEDS: Sucralfate 1 GM TABLET PO SCH ×2 (06:16→18:16)
[2021-03-26] MEDS: Budesonide/Formoterol 160/4.5 1 PUFF INH IH SCH ×2 (08:07→20:41)
[2021-03-26] MEDS: Aspirin 81 MG TAB.CHEW PO SCH (08:58)
[2021-03-26] MEDS: Metoprolol XL (24 HR) Succ 50 MG TAB.ER.24H PO SCH (08:58)
[2021-03-26] MEDS: Chlorhexidine Rinse 15 ML MOUTHWASH MM SCH ×2 (08:58→19:28)
[2021-03-26] MEDS: Lactobacillus 1 EACH CAP.SPRINK PO SCH ×2 (08:58→19:29)
[2021-03-26] MEDS: FLUoxetine 20 MG CAPSULE PO SCH (08:58)
[2021-03-26] MEDS: Multivit/Ca/Min/Fe/FA 1 TAB TABLET PO SCH (08:58)
[2021-03-26] MEDS: MethylPREDNISolone 40 MG/ML VIAL IVP SCH (08:59)
[2021-03-26] MEDS: Piperacillin/Tazobactam 3.375 GM in 0.9 % Sodium Chloride Mini Bag 100 ML IVPB SCH ×3 (08:59→23:31)
[2021-03-26] MEDS ORDERED: Furosemide 20 MG/2 ML VIAL IVP SCH (09:00)
[2021-03-26] MEDS: Gabapentin 300 MG CAPSULE PO SCH ×3 (09:00→19:29)
[2021-03-26] MEDS: Nicotine 21 MG PATCH.TD24 TD SCH (09:08)
[2021-03-26] MEDS: Nystatin POWDER 30 GM BOTTLE TP SCH ×2 (09:09→19:29)
[2021-03-26 16:10] LABS: Influenza A PCR Body Fluid NOT DETECTED; Influenza B PCR Body Fluid NOT DETECTED; RVP Body Fluid Source BAL LLL
[2021-03-26] MEDS: *HR* Rivaroxaban 10 MG TABLET PO SCH (18:17)
[2021-03-26] MEDS: Topiramate 100 MG TABLET PO SCH (19:29)
[2021-03-27] MEDS: Ipratropium/Albuterol Neb 3 ML IH SCH ×6 (04:25→23:47)
[2021-03-27 06:06] LABS: Mixed Venous Blood pCO2 57 mmHg (44-46); Mixed Venous Blood pH 7.45 pH Units (7.34-7.36); Mixed Venous Blood pO2 42 mmHg (35-45)
[2021-03-27 06:11] LABS: BUN/Creatinine Ratio 24 (6-26); Blood Urea Nitrogen 25 mg/dL (8-23); Calcium 8.7 mg/dL (8.6-10.3); Carbon Dioxide 39 mEq/L (23-29); Chloride 97 mEq/L (98-107); Glucose 99 mg/dL (70-105); Osmolality,Calculated 294 (280-300); Potassium 3.4 mEq/L (3.5-5.1); Sodium 140 mEq/L (136-145); eGFR For African Americans > 60 (> 60); eGFR For Non-African Americans 53 (> 60)
[2021-03-27] MEDS: Budesonide/Formoterol 160/4.5 1 PUFF INH IH SCH ×2 (07:31→20:49)
[2021-03-27] MEDS ORDERED: Potassium Chloride Elixir 20 MEQ/15 ML UDC PO ONE (07:44)
[2021-03-27] MEDS: Nicotine 21 MG PATCH.TD24 TD SCH (07:59)
[2021-03-27] MEDS: Aspirin 81 MG TAB.CHEW PO SCH (08:00)
[2021-03-27] MEDS: Sucralfate 1 GM TABLET PO SCH ×2 (08:00→16:23)
[2021-03-27] MEDS: FLUoxetine 20 MG CAPSULE PO SCH (08:00)
[2021-03-27] MEDS: Chlorhexidine Rinse 15 ML MOUTHWASH MM SCH ×2 (08:00→19:28)
[2021-03-27] MEDS: Metoprolol XL (24 HR) Succ 50 MG TAB.ER.24H PO SCH (08:00)
[2021-03-27] MEDS: Lactobacillus 1 EACH CAP.SPRINK PO SCH ×2 (08:00→19:28)
[2021-03-27] MEDS: Gabapentin 300 MG CAPSULE PO SCH ×3 (08:00→19:28)
[2021-03-27] MEDS: Multivit/Ca/Min/Fe/FA 1 TAB TABLET PO SCH (08:00)
[2021-03-27] MEDS: predniSONE 20 MG TABLET PO SCH (08:00)
[2021-03-27] MEDS: Piperacillin/Tazobactam 3.375 GM in 0.9 % Sodium Chloride Mini Bag 100 ML IVPB SCH ×3 (08:01→23:22)
[2021-03-27] MEDS: Nystatin POWDER 30 GM BOTTLE TP SCH ×2 (08:22→19:28)
[2021-03-27 13:46] LABS: RSV PCR Body Fluid DETECTED
[2021-03-27] MEDS: *HR* Rivaroxaban 10 MG TABLET PO SCH (16:22)
[2021-03-27] MEDS: Topiramate 100 MG TABLET PO SCH (19:28)
[2021-03-28] MEDS: Ipratropium/Albuterol Neb 3 ML IH SCH ×3 (04:05→11:34)
[2021-03-28 05:58] LABS: BUN/Creatinine Ratio 29 (6-26); Blood Urea Nitrogen 27 mg/dL (8-23); Calcium 8.6 mg/dL (8.6-10.3); Carbon Dioxide 35 mEq/L (23-29); Chloride 102 mEq/L (98-107); Glucose 113 mg/dL (70-105); Osmolality,Calculated 296 (280-300); Potassium 3.4 mEq/L (3.5-5.1); Sodium 140 mEq/L (136-145); eGFR For African Americans > 60 (> 60); eGFR For Non-African Americans 59 (> 60)
[2021-03-28] MEDS: Budesonide/Formoterol 160/4.5 1 PUFF INH IH SCH (07:35)
[2021-03-28] MEDS: Lactobacillus 1 EACH CAP.SPRINK PO SCH (07:53)
[2021-03-28] MEDS: Metoprolol XL (24 HR) Succ 50 MG TAB.ER.24H PO SCH (07:53)
[2021-03-28] MEDS: Gabapentin 300 MG CAPSULE PO SCH (07:53)
[2021-03-28] MEDS: Sucralfate 1 GM TABLET PO SCH (07:53)
[2021-03-28] MEDS: Aspirin 81 MG TAB.CHEW PO SCH (07:53)
[2021-03-28] MEDS: Chlorhexidine Rinse 15 ML MOUTHWASH MM SCH (07:53)
[2021-03-28] MEDS: Multivit/Ca/Min/Fe/FA 1 TAB TABLET PO SCH (07:53)
[2021-03-28] MEDS: Nystatin POWDER 30 GM BOTTLE TP SCH (07:53)
[2021-03-28] MEDS: FLUoxetine 20 MG CAPSULE PO SCH (07:53)
[2021-03-28] MEDS: predniSONE 20 MG TABLET PO SCH (07:53)
[2021-03-28] MEDS: Nicotine 21 MG PATCH.TD24 TD SCH (07:54)
[2021-03-28 11:26] VITALS: BP 108/71; PULSE 84; TEMP 98.5; O2SAT 95
[2021-03-28 11:26] LABS: Adenovirus Not Detected (Not Detect); Bordetella Pertussis Not Detected (Not Detect); Chlamydophila pneumoniae Not Detected (Not Detect); Coronavirus 229E Not Detected (Not Detect); Coronavirus HKU1 Not Detected (Not Detect); Coronavirus NL63 Not Detected (Not Detect); Coronavirus OC43 Not Detected (Not Detect); Human Metapneumovirus Not Detected (Not Detect); Human Rhinovirus/Enterovirus Not Detected (Not Detect); Influenza A Subtype 2009 H1 Not Detected (Not Detect); Influenza B Not Detected (Not Detect); Mycoplasma pneumoniae Not Detected (Not Detect); Parainfluenza Virus 1 Not Detected (Not Detect); Parainfluenza Virus 2 Not Detected (Not Detect); Parainfluenza Virus 3 Not Detected (Not Detect); Parainfluenza Virus 4 Not Detected (Not Detect); Respiratory Syncytial Virus Not Detected (Not Detect); SARS-CoV-2 Not Detected (Not Detect)
== END 2021-03-28 13:22 | DRG 177 ==
LOC: 2ANU 19:50 → EMEROOARM 19:50 → SUATTDRO 03-21 00:35 → 2ANU 03-21 01:16
PROVIDERS: ADMIT Internal Medicine; ATTEND Internal Medicine

== ENCOUNTER 2021-04-14 08:49 | Inpatient (IN) ==
[2021-04-14] MEDS ORDERED: Ipratropium/Albuterol Neb 3 ML IH ONE (08:54)
[2021-04-14] MEDS ORDERED: Acetaminophen 325 MG TABLET PO ONE (09:04)
[2021-04-14] MEDS ORDERED: Vancomycin 2,000 MG/520 ML IV.SOLN IVPB ONE (09:28)
[2021-04-14] MEDS ORDERED: Piperacillin/Tazobactam 3.375 GM in 0.9 % Sodium Chloride Mini Bag 100 ML IVPB ONE (09:28)
[2021-04-14 10:05] LABS: Influenza A PCR Negative (Negative); Influenza B PCR Negative (Negative); Resp. Syncytial Virus PCR Negative (Negative)
[2021-04-14 10:08] LABS: SARS-CoV-2 by PCR (In House) Positive (Negative)
[2021-04-14 10:22] LABS: Basophils % 0.1 %; Eosinophils % 0.5 %; Immature Granulocytes % 0.6 % (0-4); Red Cell Distribution Width 15.9 % (11.5-14.5); Segmented Neutrophils % 84.2 %
[2021-04-14 10:23] LABS: VBG HCO3 29 mEq/L (21-27); VBG PCO2 61 mmHg (41-51); VBG PH 7.29 pH Units (7.32-7.42); VBG PO2 35 mmHg (25-50)
[2021-04-14 10:24] LABS: Hematocrit 32.2 % (35.3-44.9); Hemoglobin 9.6 g/dL (11.5-15.4); Lymphocytes # 0.7 K/mcL (0.6-4.6); Lymphocytes % 8.7 %; Mean Corpuscular HGB Conc 29.8 g/dL (31.6-35.5); Mean Corpuscular Hemoglobin 27.2 pg (28.0-33.3); Mean Corpuscular Volume 91.2 fL (83.0-100.0); Mean Platelet Volume 9.9 fL (9.4-12.4); Monocytes # 0.5 K/mcL (0.0-1.3); Monocytes % 5.9 %; Platelet Count 110 K/mcL (140-400); Red Blood Count 3.53 M/mcL (3.82-4.97); White Blood Count 8.3 K/mcL (4.3-11.1)
[2021-04-14 10:47] LABS: Anisocytosis 1+ (Not Present); Platelet Estimate Normal (Normal)
[2021-04-14 10:49] LABS: Calcium 8.5 mg/dL (8.6-10.3); Potassium 3.7 mEq/L (3.5-5.1)
[2021-04-14 10:52] LABS: Troponin I 0.11 ng/mL (< 0.04)
[2021-04-14] MEDS ORDERED: Furosemide 20 MG/2 ML VIAL IVP ONE (11:21)
[2021-04-14] MEDS ORDERED: Acetaminophen 325 MG TABLET PO PRN (12:00)
[2021-04-14] MEDS ORDERED: Naloxone 0.4 MG/ML INJ IVP PRN (12:02)
[2021-04-14] MEDS ORDERED: Ondansetron 4 MG/2 ML VIAL IVP PRN (12:02)
[2021-04-14] MEDS ORDERED: SUMAtriptan succinate 25 MG TABLET PO PRN (12:04)
[2021-04-14] MEDS ORDERED: *HR* HYDROcodone/Acet 5/325 mg TABLET PO PRN (12:04)
[2021-04-14 12:40] LABS: Bilirubin,Direct 0.2 mg/dL (0.0-0.2); Bilirubin,Indirect 0.3 mg/dL (0.0-1.0); Bilirubin,Total 0.5 mg/dL (0.3-1.0); Globulin 3.1 g/dL (2.4-3.5); Total Protein 6.1 g/dL (6.4-8.9)
[2021-04-14] MEDS ORDERED: D5% in Water 1,000 ML IVC PRN (14:19)
[2021-04-14] MEDS ORDERED: Dextrose Gel 15 GM/37.5 ML TUBE PO PRN ×2 (14:19)
[2021-04-14] MEDS ORDERED: *HR* Dextrose 50 % in Water (Syg) 50 ML SYRINGE IVP PRN (14:19)
[2021-04-14] MEDS: Ipratropium 1 PUFF INHALER IH SCH ×3 (15:29→23:23)
[2021-04-14] MEDS: Insulin LISPRO 300 UNITS/3 ML VIAL SUBQ SCH ×2 (18:15→20:39)
[2021-04-14] MEDS: Gabapentin 300 MG CAPSULE PO SCH ×2 (18:15→20:29)
[2021-04-14] MEDS: Budesonide/Formoterol 160/4.5 1 PUFF INH IH SCH (19:32)
[2021-04-14] MEDS: Topiramate 100 MG TABLET PO SCH (20:29)
[2021-04-14] MEDS: Sucralfate 1 GM TABLET PO SCH (20:30)
[2021-04-14] MEDS: Furosemide 20 MG/2 ML VIAL IVP SCH (20:30)
[2021-04-15] MEDS: Ipratropium 1 PUFF INHALER IH SCH ×6 (03:33→23:16)
[2021-04-15] MEDS: Piperacillin/Tazobactam 3.375 GM in 0.9 % Sodium Chloride Mini Bag 100 ML IVPB SCH ×3 (05:57→23:11)
[2021-04-15 06:55] LABS: Bilirubin,Total 0.5 mg/dL (0.3-1.0); Calcium 8.5 mg/dL (8.6-10.3); Globulin 3.1 g/dL (2.4-3.5); Magnesium 1.9 mg/dL (1.6-2.6); Phosphorous 2.8 mg/dL (2.7-4.5); Potassium 3.6 mEq/L (3.5-5.1); Total Protein 6.1 g/dL (6.4-8.9)
[2021-04-15 07:34] LABS: Acinetobacter baumannii by PCR Not Detected (Not Detect); Enterobacter cloacae Cmplx PCR Not Detected (Not Detect); Enterococcus by PCR Not Detected (Not Detect); Staphylococcus aureus by PCR Not Detected (Not Detect); Staphylococcus by PCR Not Detected (Not Detect); Streptococcus agalactiae(B)PCR Not Detected (Not Detect); Streptococcus by PCR Not Detected (Not Detect); Streptococcus pneumoniae PCR Not Detected (Not Detect); Streptococcus pyogenes (A) PCR Not Detected (Not Detect); blaKPC Carbapenem-Resist Gene Not Detected (Not Detect)
[2021-04-15 07:36] LABS: Candida albicans by PCR Not Detected (Not Detect); Candida glabrata by PCR Not Detected (Not Detect); Escherichia coli by PCR DETECTED (Not Detect); Klebsiella oxytoca by PCR Not Detected (Not Detect); Klebsiella pneumoniae by PCR Not Detected (Not Detect); Proteus by PCR Not Detected (Not Detect); Pseudomonas aeruginosa by PCR Not Detected (Not Detect); Serratia marcescens by PCR Not Detected (Not Detect)
[2021-04-15 07:37] LABS: Candida krusei by PCR Not Detected (Not Detect); Candida parapsilosis by PCR Not Detected (Not Detect); Candida tropicalis by PCR Not Detected (Not Detect)
[2021-04-15] MEDS: Tiotropium 10 INH DOSE IH SCH (07:47)
[2021-04-15] MEDS: Budesonide/Formoterol 160/4.5 1 PUFF INH IH SCH ×2 (07:48→19:55)
[2021-04-15] MEDS: Furosemide 20 MG/2 ML VIAL IVP SCH ×2 (09:47→23:27)
[2021-04-15] MEDS: Insulin LISPRO 300 UNITS/3 ML VIAL SUBQ SCH ×4 (09:47→22:13)
[2021-04-15] MEDS: FLUoxetine 20 MG CAPSULE PO SCH (09:48)
[2021-04-15] MEDS: Gabapentin 300 MG CAPSULE PO SCH ×3 (09:49→23:27)
[2021-04-15] MEDS: *HR* Rivaroxaban 10 MG TABLET PO SCH (09:49)
[2021-04-15] MEDS: Sucralfate 1 GM TABLET PO SCH ×2 (09:49→23:12)
[2021-04-15] MEDS: Metoprolol XL (24 HR) Succ 50 MG TAB.ER.24H PO SCH (09:50)
[2021-04-15] MEDS ORDERED: Remdesivir 200 MG in 0.9 % Sodium Chloride 100 ML IVPB ONE (10:00)
[2021-04-15 16:37] LABS: Basophils % 0.1 %; Hematocrit 29.8 % (35.3-44.9); Hemoglobin 8.8 g/dL (11.5-15.4); Immature Granulocytes % 0.6 % (0-4); Lymphocytes # 0.5 K/mcL (0.6-4.6); Lymphocytes % 5.8 %; Mean Corpuscular HGB Conc 29.5 g/dL (31.6-35.5); Mean Corpuscular Hemoglobin 26.2 pg (28.0-33.3); Mean Corpuscular Volume 88.7 fL (83.0-100.0); Mean Platelet Volume 10.6 fL (9.4-12.4); Monocytes # 0.2 K/mcL (0.0-1.3); Monocytes % 2.5 %; Neutrophils # 7.2 K/mcL (1.6-8.9); Platelet Count 114 K/mcL (140-400); Red Blood Count 3.36 M/mcL (3.82-4.97); Red Cell Distribution Width 15.8 % (11.5-14.5); White Blood Count 7.9 K/mcL (4.3-11.1)
[2021-04-15 17:37] LABS: Bacteria,Urine Few per hpf (None-Few); Bilirubin,Urine Negative (Negative); Blood,Urine Negative (Negative); Clarity,Urine Clear (Clear); Color,Urine Light-Yellow (Yellow); Glucose,Urine (UA) Normal (Normal); Ketones,Urine Negative (Negative); Leukocyte Esterase,Urine Moderate (Negative); Nitrite,Urine Negative (Negative); Protein,Urine Negative (Neg-Trace); RBC,Urine 0-3 per hpf (0-3); Specific Gravity,Urine 1.011 (1.010-1.025); Squamous Epithelial Cell,Urine Few per hpf (None-Few); Urobilinogen,Urine Normal (Normal)
[2021-04-15] MEDS ORDERED: Albumin 25% 25gram/100mL 25 GM/100 ML IV.SOLN IVPB ONE (22:40)
[2021-04-15] MEDS: Topiramate 100 MG TABLET PO SCH (23:27)
[2021-04-16 02:12] LABS: Hematocrit 28.2 % (35.3-44.9); Hemoglobin 8.6 g/dL (11.5-15.4); Mean Corpuscular HGB Conc 30.5 g/dL (31.6-35.5); Mean Corpuscular Volume 88.7 fL (83.0-100.0); Mean Platelet Volume 10.4 fL (9.4-12.4); Platelet Count 116 K/mcL (140-400); Red Blood Count 3.18 M/mcL (3.82-4.97); Red Cell Distribution Width 15.6 % (11.5-14.5); White Blood Count 6.4 K/mcL (4.3-11.1)
[2021-04-16 02:34] LABS: Albumin 2.9 g/dL (3.5-5.7); Bilirubin,Direct 0.1 mg/dL (0.0-0.2); Bilirubin,Indirect 0.3 mg/dL (0.0-1.0); Bilirubin,Total 0.4 mg/dL (0.3-1.0); Globulin 2.9 g/dL (2.4-3.5); Total Protein 5.8 g/dL (6.4-8.9)
[2021-04-16 02:35] LABS: Calcium 8.5 mg/dL (8.6-10.3); Potassium 3.9 mEq/L (3.5-5.1)
[2021-04-16] MEDS: Ipratropium 1 PUFF INHALER IH SCH ×6 (03:16→23:24)
[2021-04-16] MEDS: Piperacillin/Tazobactam 3.375 GM in 0.9 % Sodium Chloride Mini Bag 100 ML IVPB SCH ×3 (05:43→20:44)
[2021-04-16] MEDS: Budesonide/Formoterol 160/4.5 1 PUFF INH IH SCH ×2 (07:36→19:47)
[2021-04-16] MEDS: Tiotropium 10 INH DOSE IH SCH (07:38)
[2021-04-16] MEDS: Insulin LISPRO 300 UNITS/3 ML VIAL SUBQ SCH ×4 (07:48→20:43)
[2021-04-16] MEDS: Sucralfate 1 GM TABLET PO SCH ×2 (09:51→20:43)
[2021-04-16] MEDS: FLUoxetine 20 MG CAPSULE PO SCH (09:51)
[2021-04-16] MEDS: Gabapentin 300 MG CAPSULE PO SCH ×3 (09:51→20:42)
[2021-04-16] MEDS: *HR* Rivaroxaban 10 MG TABLET PO SCH (09:52)
[2021-04-16] MEDS: Metoprolol XL (24 HR) Succ 50 MG TAB.ER.24H PO SCH (09:52)
[2021-04-16] MEDS: Remdesivir 100 MG in 0.9 % Sodium Chloride 100 ML IVPB SCH (09:52)
[2021-04-16] MEDS: Topiramate 100 MG TABLET PO SCH (20:43)
[2021-04-17 02:38] LABS: Hematocrit 28.6 % (35.3-44.9); Hemoglobin 8.4 g/dL (11.5-15.4); Mean Corpuscular HGB Conc 29.4 g/dL (31.6-35.5); Mean Corpuscular Hemoglobin 26.4 pg (28.0-33.3); Mean Corpuscular Volume 89.9 fL (83.0-100.0); Mean Platelet Volume 10.3 fL (9.4-12.4); Platelet Count 127 K/mcL (140-400); Red Blood Count 3.18 M/mcL (3.82-4.97); Red Cell Distribution Width 15.7 % (11.5-14.5); White Blood Count 6.1 K/mcL (4.3-11.1)
[2021-04-17 02:54] LABS: Calcium 8.6 mg/dL (8.6-10.3); Potassium 3.9 mEq/L (3.5-5.1)
[2021-04-17 02:55] LABS: Albumin 2.8 g/dL (3.5-5.7); Albumin/Globulin Ratio 0.9 (1.1-2.2); Bilirubin,Direct 0.1 mg/dL (0.0-0.2); Bilirubin,Indirect 0.2 mg/dL (0.0-1.0); Bilirubin,Total 0.3 mg/dL (0.3-1.0); Total Protein 5.8 g/dL (6.4-8.9)
[2021-04-17] MEDS: Ipratropium 1 PUFF INHALER IH SCH ×5 (04:13→20:38)
[2021-04-17] MEDS: Piperacillin/Tazobactam 3.375 GM in 0.9 % Sodium Chloride Mini Bag 100 ML IVPB SCH ×3 (06:36→21:13)
[2021-04-17] MEDS: Budesonide/Formoterol 160/4.5 1 PUFF INH IH SCH ×2 (08:00→20:38)
[2021-04-17] MEDS: Tiotropium 10 INH DOSE IH SCH (08:01)
[2021-04-17] MEDS: Insulin LISPRO 300 UNITS/3 ML VIAL SUBQ SCH ×3 (10:21→21:12)
[2021-04-17] MEDS: Remdesivir 100 MG in 0.9 % Sodium Chloride 100 ML IVPB SCH (10:29)
[2021-04-17] MEDS: *HR* Rivaroxaban 10 MG TABLET PO SCH (10:31)
[2021-04-17] MEDS: Sucralfate 1 GM TABLET PO SCH ×2 (10:31→21:12)
[2021-04-17] MEDS: FLUoxetine 20 MG CAPSULE PO SCH (10:31)
[2021-04-17] MEDS: Gabapentin 300 MG CAPSULE PO SCH ×3 (10:32→21:16)
[2021-04-17] MEDS: Furosemide 20 MG TABLET PO SCH (10:32)
[2021-04-17] MEDS: Metoprolol XL (24 HR) Succ 50 MG TAB.ER.24H PO SCH (10:32)
[2021-04-17] MEDS: Topiramate 100 MG TABLET PO SCH (21:12)
[2021-04-18] MEDS: Ipratropium 1 PUFF INHALER IH SCH ×5 (00:07→15:49)
[2021-04-18] MEDS: Piperacillin/Tazobactam 3.375 GM in 0.9 % Sodium Chloride Mini Bag 100 ML IVPB SCH ×2 (04:25→14:52)
[2021-04-18 07:15] VITALS: PULSE 83
[2021-04-18] MEDS: Tiotropium 10 INH DOSE IH SCH (07:43)
[2021-04-18] MEDS: Budesonide/Formoterol 160/4.5 1 PUFF INH IH SCH (07:43)
[2021-04-18] MEDS: Insulin LISPRO 300 UNITS/3 ML VIAL SUBQ SCH ×2 (08:05→10:51)
[2021-04-18 09:04] LABS: White Blood Count 5.8 K/mcL (4.3-11.1)
[2021-04-18 09:05] LABS: Hematocrit 29.6 % (35.3-44.9); Hemoglobin 8.8 g/dL (11.5-15.4); Mean Corpuscular HGB Conc 29.7 g/dL (31.6-35.5); Mean Corpuscular Hemoglobin 26.7 pg (28.0-33.3); Mean Platelet Volume 9.9 fL (9.4-12.4); Platelet Count 160 K/mcL (140-400); Red Blood Count 3.29 M/mcL (3.82-4.97); Red Cell Distribution Width 15.8 % (11.5-14.5)
[2021-04-18 09:24] LABS: Alanine Aminotransferase 7 Units/L (7-52); Albumin 2.7 g/dL (3.5-5.7); Alkaline Phosphatase 49 Units/L (34-104); Aspartate Amino Transferase 8 Units/L (13-39); BUN/Creatinine Ratio 31 (6-26); Bilirubin,Direct 0.2 mg/dL (0.0-0.2); Bilirubin,Indirect 0.1 mg/dL (0.0-1.0); Bilirubin,Total 0.3 mg/dL (0.3-1.0); Blood Urea Nitrogen 31 mg/dL (8-23); Calcium 8.7 mg/dL (8.6-10.3); Carbon Dioxide 27 mEq/L (23-29); Chloride 107 mEq/L (98-107); Globulin 2.8 g/dL (2.4-3.5); Glucose 121 mg/dL (70-105); Osmolality,Calculated 288 (280-300); Potassium 3.9 mEq/L (3.5-5.1); Sodium 135 mEq/L (136-145); Total Protein 5.5 g/dL (6.4-8.9); eGFR For African Americans > 60 (> 60); eGFR For Non-African Americans 54 (> 60)
[2021-04-18] MEDS: Gabapentin 300 MG CAPSULE PO SCH ×2 (10:27→14:52)
[2021-04-18] MEDS: FLUoxetine 20 MG CAPSULE PO SCH (10:28)
[2021-04-18] MEDS: *HR* Rivaroxaban 10 MG TABLET PO SCH (10:29)
[2021-04-18] MEDS: Furosemide 20 MG TABLET PO SCH (10:30)
[2021-04-18] MEDS: Sucralfate 1 GM TABLET PO SCH (10:31)
[2021-04-18] MEDS: Metoprolol XL (24 HR) Succ 50 MG TAB.ER.24H PO SCH (10:31)
[2021-04-18] MEDS: Remdesivir 100 MG in 0.9 % Sodium Chloride 100 ML IVPB SCH (10:38)
[2021-04-18 10:49] VITALS: BP 110/68; TEMP 98.5
[2021-04-18 15:55] VITALS: O2SAT 95
== END 2021-04-18 17:33 | DRG 871 ==
LOC: 3BNU 08:49 → EMEROOARM 08:49 → 3BNU 16:46 → SUATTDRO 20:54
PROVIDERS: ADMIT Family Medicine; ATTEND Family Medicine

== ENCOUNTER 2022-01-10 13:08 | Observation (INO) ==
[2022-01-10] MEDS ORDERED: Iopamidol - 370 500 ML MLS IVP ONE (14:39)
[2022-01-10 15:20] LABS: Basophils % 0.3 %; Eosinophils % 2.3 %; Lymphocytes % 17.6 %
[2022-01-10 15:21] LABS: Eosinophils # 0.1 K/mcL (0.0-0.6); Hematocrit 30.7 % (35.3-44.9); Hemoglobin 8.7 g/dL (11.5-15.4); Immature Granulocytes % 0.5 % (0-4); Lymphocytes # 1.1 K/mcL (0.6-4.6); Mean Corpuscular HGB Conc 28.3 g/dL (31.6-35.5); Mean Corpuscular Hemoglobin 24.5 pg (28.0-33.3); Mean Corpuscular Volume 86.5 fL (83.0-100.0); Mean Platelet Volume 9.5 fL (9.4-12.4); Monocytes # 0.5 K/mcL (0.0-1.3); Monocytes % 7.3 %; Platelet Count 223 K/mcL (140-400); Red Blood Count 3.55 M/mcL (3.82-4.97); Red Cell Distribution Width 19.8 % (11.5-14.5); White Blood Count 6.2 K/mcL (4.3-11.1)
[2022-01-10 15:23] LABS: Neutrophils # 4.5 K/mcL (1.6-8.9)
[2022-01-10 15:27] LABS: INR 1.2; Prothrombin Time 13.2 Seconds (9.4-12.1)
[2022-01-10 15:30] LABS: Activated Partial Thrombo Time 31.5 Seconds (26.0-36.0)
[2022-01-10 15:35] LABS: Anisocytosis 1+ (Not Present); Hypochromasia Present (Not Present); Platelet Estimate Normal (Normal); Stomatocytes 1+ (Not Present)
[2022-01-10 15:41] LABS: Alanine Aminotransferase 7 Units/L (7-52); Albumin 3.9 g/dL (3.5-5.7); Albumin/Globulin Ratio 1.2 (1.1-2.2); Alkaline Phosphatase 51 Units/L (34-104); Aspartate Amino Transferase 9 Units/L (13-39); BUN/Creatinine Ratio 22 (6-26); Bilirubin,Indirect 0.2 mg/dL (0.0-1.0); Bilirubin,Total 0.2 mg/dL (0.3-1.0); Blood Urea Nitrogen 35 mg/dL (8-23); Calcium 10.4 mg/dL (8.6-10.3); Carbon Dioxide 32 mEq/L (23-29); Chloride 101 mEq/L (98-107); Globulin 3.3 g/dL (2.4-3.5); Glucose 100 mg/dL (70-105); Osmolality,Calculated 294 (280-300); Potassium 4.4 mEq/L (3.5-5.1); Sodium 138 mEq/L (136-145); Total Protein 7.2 g/dL (6.4-8.9); Troponin I < 0.03 ng/mL (< 0.04)
[2022-01-10 16:01] LABS: Amphetamine Screen,Urine Negative ng/mL (Cutoff=1000); Barbiturate Screen,Urine Negative ng/mL (Cutoff=200); Benzodiazepines Screen,Urine Negative ng/mL (Cutoff=200); Cannabinoid Screen,Urine Negative ng/mL (Cutoff = 50); Cocaine Screen,Urine Negative ng/mL (Cutoff= 300); Opiate Screen,Urine Negative ng/mL (Cutoff=300); Phencyclidine Screen,Urine Negative ng/mL (Cutoff=25)
[2022-01-10 16:02] LABS: Amorphous Sediment,Urine Few per hpf (None-Few); Bilirubin,Urine Negative (Negative); Blood,Urine Negative (Negative); Clarity,Urine Turbid (Clear); Color,Urine Light-Yellow (Yellow); Glucose,Urine (UA) Normal (Normal); Hyaline Casts,Urine Few per lpf (None Seen); Ketones,Urine Negative (Negative); Leukocyte Esterase,Urine Moderate (Negative); Mucus,Urine Few per lpf (None-Few); Nitrite,Urine Positive (Negative); Protein,Urine Negative (Neg-Trace); Specific Gravity,Urine 1.013 (1.010-1.025); Squamous Epithelial Cell,Urine Few per hpf (None-Few); Urobilinogen,Urine Normal (Normal); WBC,Urine 15-30 per hpf (0-3)
[2022-01-10] MEDS ORDERED: 0.9 % Sodium Chloride 500 ML IVC ONE (16:12)
[2022-01-10] MEDS ORDERED: cefTRIAXone 1,000 MG in Water for inj. (sterile) 10 ML IVP ONE (16:12)
[2022-01-10] MEDS ORDERED: Naloxone 0.4 MG/ML INJ IVP PRN (17:51)
[2022-01-10] MEDS ORDERED: Ondansetron 4 MG/2 ML VIAL IVP PRN (17:51)
[2022-01-10] MEDS ORDERED: Acetaminophen 325 MG TABLET PO PRN (17:51)
[2022-01-10] MEDS ORDERED: SUMAtriptan succinate 25 MG TABLET PO PRN (17:55)
[2022-01-10] MEDS ORDERED: Ipratropium/Albuterol Neb 3 ML IH PRN (18:13)
[2022-01-10] MEDS ORDERED: Dextrose Gel 15 GM/37.5 ML TUBE PO PRN ×2 (18:16)
[2022-01-10] MEDS ORDERED: D5% in Water 1,000 ML IVC PRN (18:16)
[2022-01-10] MEDS: *HR* Dextrose 50 % in Water (Syg) 50 ML SYRINGE IVP PRN ×2 (19:44→23:57)
[2022-01-10] MEDS: Budesonide/Formoterol 160/4.5 1 PUFF INH IH SCH (19:59)
[2022-01-10] MEDS ORDERED: Topiramate 100 MG TABLET PO SCH (21:00)
[2022-01-10] MEDS: Gabapentin 300 MG CAPSULE PO SCH (21:55)
[2022-01-11 02:18] LABS: Basophils % 0.2 %; Immature Granulocytes % 0.4 % (0-4)
[2022-01-11 02:20] LABS: Eosinophils # 0.1 K/mcL (0.0-0.6); Eosinophils % 2.4 %; Hematocrit 28.7 % (35.3-44.9); Hemoglobin 8.3 g/dL (11.5-15.4); Lymphocytes # 0.8 K/mcL (0.6-4.6); Lymphocytes % 17.8 %; Mean Corpuscular HGB Conc 28.9 g/dL (31.6-35.5); Mean Corpuscular Hemoglobin 24.9 pg (28.0-33.3); Mean Corpuscular Volume 86.2 fL (83.0-100.0); Mean Platelet Volume 9.8 fL (9.4-12.4); Monocytes # 0.4 K/mcL (0.0-1.3); Monocytes % 7.8 %; Neutrophils # 3.3 K/mcL (1.6-8.9); Platelet Count 199 K/mcL (140-400); Red Blood Count 3.33 M/mcL (3.82-4.97); Red Cell Distribution Width 19.6 % (11.5-14.5); Segmented Neutrophils % 71.4 %; White Blood Count 4.6 K/mcL (4.3-11.1)
[2022-01-11 02:35] LABS: Estimated Average Glucose 108 mg/dl; Hemoglobin A1C 5.4 %
[2022-01-11 02:39] LABS: Calcium 9.7 mg/dL (8.6-10.3); Chol/HDL Ratio 5.6 (0-4.9); Magnesium 2.1 mg/dL (1.6-2.6); Phosphorous 4.2 mg/dL (2.7-4.5); Potassium 3.8 mEq/L (3.5-5.1)
[2022-01-11 03:04] LABS: Anisocytosis 1+ (Not Present); Platelet Estimate Normal (Normal)
[2022-01-11 03:05] LABS: Polychromasia 1+ (Not Present)
[2022-01-11] MEDS: Budesonide/Formoterol 160/4.5 1 PUFF INH IH SCH (07:33)
[2022-01-11] MEDS ORDERED: Metoprolol XL (24 HR) Succ 50 MG TAB.ER.24H PO SCH (09:00)
[2022-01-11] MEDS ORDERED: *HR* Rivaroxaban 15 MG TABLET PO SCH (09:00)
[2022-01-11] MEDS ORDERED: FLUoxetine 20 MG CAPSULE PO SCH (09:00)
[2022-01-11] MEDS: Insulin LISPRO 300 UNITS/3 ML VIAL SUBQ SCH ×2 (09:07→13:00)
[2022-01-11] MEDS: Gabapentin 300 MG CAPSULE PO SCH ×2 (09:14→14:45)
[2022-01-11 10:51] VITALS: BP 112/60; PULSE 84; TEMP 97.5; O2SAT 98
[2022-01-11] MEDS ORDERED: cefTRIAXone 1,000 MG in 0.9 % Sodium Chloride 10 ML IVP SCH (17:00)
[2022-01-12] MEDS ORDERED: *HR* Rivaroxaban 10 MG TABLET PO SCH (17:00)
== END 2022-01-11 15:23 | disposition home or self-care (01) ==
LOC: 3ANU 13:08 → EMEROOARM 13:08 → SUATTDRO 18:18 → 3ANU 19:00
PROVIDERS: ADMIT Internal Medicine; ATTEND Internal Medicine